=== PATIENT | male | born 1945 | race Hispanic/Latino ===

== ENCOUNTER 2018-01-30 05:53 | Observation (INO) | payer OTHER ==
[2018-01-23 12:18] LABS: BASOPHILS % 0.4 % (0.0-1.0); EOSINOPHILS # (AUTO) 0.2 (0.0-0.4); EOSINOPHILS % 2.2 % (0.0-6.0); HEMATOCRIT 45.5 % (38.2-49.6); HEMOGLOBIN 15.1 g/dL (14.0-18.0); LYMPHOCYTES # (AUTO) 1.7 (1.0-3.2); LYMPHOCYTES % 24.4 % (18.0-39.1); MEAN CORPUSCULAR HGB CONC 33.2 g/dL (31-35); MEAN CORPUSCULAR VOLUME 90.5 fL (81-99); MONOCYTES # (AUTO) 0.7 (0.2-0.8); MONOCYTES % 10.2 % (4.4-11.3); NEUTROPHILS # (AUTO) 4.2 (2.1-6.9); NEUTROPHILS % 62.5 % (38.7-80.0); PLATELET COUNT 200 x10e3/uL (140-360); RED BLOOD COUNT 5.03 x10e6/uL (4.3-5.7); RED CELL DISTRIBUTION WIDTH 12.6 % (11.7-14.4)
--- NOTE | 2018-01-23 12:29 | Diagnostic Imaging Report ---
PROCEDURE: Frontal and lateral views of the chest. COMPARISON: 06/28/2016 INDICATIONS: PRE OPERATIVE, PATIENT DENIES CHEST COMPLAINTS FINDINGS: Lines/tubes: None. Lungs: The lungs are well inflated and clear. There is no evidence of pneumonia or pulmonary edema. Pleura: There is no pleural effusion or pneumothorax. Heart and mediastinum: The heart and the mediastinum are normal. Bones: No acute bony abnormality. IMPRESSION: 1. No acute cardiopulmonary disease. Dictated by: Jus Cooper M.D. on 01/23/2018 at 12:35 Electronically approved by: Jus Cooper M.D. on 01/23/2018 at 12:35
[2018-01-23 12:35] LABS: ANION GAP 13.8 mmol/L (8-16); BLOOD UREA NITROGEN 18 mg/dL (7-26); BUN/CREATININE RATIO 22 (6-25); CALCIUM 9.8 mg/dL (8.4-10.2); CARBON DIOXIDE 24 mmol/L (22-29); CHLORIDE 108 mmol/L (98-107); CREATININE, SERUM 0.83 mg/dL (0.72-1.25); EST GLOMERULAR FILTRATION RATE > 60 ML/MIN (60-); GLUCOSE 98 mg/dL (74-118); POTASSIUM 5.8 mmol/L (3.5-5.1); SODIUM 140 mmol/L (136-145)
[~2018-01-30] VITALS: Ht 167.6 cm; Wt 70.8 kg
[~2018-01-30 05:53] MED LIST: ATORVASTATIN CA20 MG PO; BENADRYL25 M1; CARVEDILOL12.5 MG PO; DOXAZOSIN MESYLA2 MG PO; LEVAQUIN500 MG PO; TRAMADOL-ACETAMI1 EA PO; TRAZODONE HCL50 MG PO; TYLENOL # 31 EA PO; TYLENOL325 MG PO; [UNRECOGNIZED DRUG - CODE] PO
[2018-01-30] MEDS ORDERED: LEVOFLOXACIN 500MG/D5W 100ML 100 ML IV ONE (06:48)
[2018-01-30] MEDS ORDERED: CLINDAMYCIN 300MG 50 ML IV ONE (06:48)
[2018-01-30] MEDS ORDERED: BUPIVACAINE HCL 0.5% INJ 30 ML VIAL INJ ONE (07:07)
[2018-01-30] MEDS ORDERED: LIDOCAINE HCL 1% LOCAL INJ 20 ML VIAL ONE (07:07)
[2018-01-30] MEDS ORDERED: BUPIVACAINE 0.25%/EPI 30ML SDV INJ ONE (07:07)
[2018-01-30] MEDS ORDERED: BACITRACIN 50,000 UNIT VIAL ONE (07:07)
[2018-01-30] MEDS ORDERED: BACITRACIN ZINC 15 GM OINT ONE (07:07)
[2018-01-30] MEDS ORDERED: SCOPOLAMINE 1.5 MG PATCH ONE (07:47)
[2018-01-30] MEDS ORDERED: DIPHENHYDRAMINE HCL 25 MG CAP PO PRN (10:30)
[2018-01-30] MEDS ORDERED: MORPHINE SULFATE 1 MG/ML 30ML PCA IV PRN (10:30)
[2018-01-30] MEDS ORDERED: ONDANSETRON HCL INJ 2 MG/ML VIAL IV PRN (10:30)
[2018-01-30] MEDS ORDERED: DIPHENHYDRAMINE HCL INJ 50 MG/ML VIAL IM PRN (10:30)
[2018-01-30] MEDS ORDERED: NALOXONE HCL INJ 0.4 MG/ML AMP IV PRN (10:30)
[2018-01-30] MEDS ORDERED: FENTANYL CITRATE/PF 100MCG/2 ML INJ ONE ×2 (10:43→18:06)
[2018-01-30] MEDS ORDERED: MORPHINE SULFATE 2 MG/ML SYR ONE (10:56)
--- NOTE | 2018-01-30 11:10 | Operative Report ---
DATE OF PROCEDURE: January 30, 2018 PREOPERATIVE DIAGNOSIS: Left inguinal hernia. POSTOPERATIVE DIAGNOSIS: Left inguinal hernia. OPERATION PERFORMED: Repair of left inguinal hernia with extended Prolene hernia system. SUPERVISOR NUTRITIONAL YEAST: Jimmy Senior. ANESTHESIA: General. COMPLICATIONS: None. ESTIMATED BLOOD LOSS: Minimal. DESCRIPTION OF PROCEDURE: With the patient lying in bed in supine position and under good general endotracheal anesthesia, the abdomen and perineum was prepped with Betadine solution and draped in the usual manner. A left inguinal incision was made which was carried down through the subcutaneous tissue down to the external oblique aponeurosis. External oblique was then opened along the length of its fibers and the external inguinal ring was opened. There was quite a bit of scarring for the patient's penile implant around the external ring. The cord was nonetheless mobilized and retracted. The penile implant tubing was then identified. At this point, the case was turned over to Dr. Senior who proceeded to dissect the penile implants and tubing which was in the medial pocket and then he proceeded to take out the reservoir and then at that point, the case was turned back over to hi. The exploration of the cord revealed a large direct hernia that was present. This was from all the cord structures and reduced back to the intra-abdominal cavity. This had totally blown out the floor. Through the internal ring, we then went ahead and created a pocket in the preperitoneal space which was done without any difficulty and an extended Prolene hernia system was then placed in the preperitoneal space and the underlay patch was deployed without any problems. The floor was then tightened with a running suture of 2-0 Prolene. After this was done the overlay patch was then placed over the floor and split inferolaterally to allow for passage of the cord. The mesh was then sutured to the conjoined tendon and the inguinal ligament using interrupted sutures of 2-0 Vicryl. All layers were infiltrated on the way out with solution of 0.25% Marcaine. The external oblique aponeurosis was closed with a running suture of 2-0 Vicryl. The case was then turned back over to Dr. Senior who proceeded to repair the penile implant and when they were finished with that, we then went ahead and proceeded to close the wound using 3-0 Vicryl for the subcutaneous tissue and the skin was closed with clips. Dressings were applied. The sponge, lap, and needle count was correct. Patient tolerated the procedure well and returned to the recovery room in stable condition. Job#: [id number] NOLBERTO
[2018-01-30 11:30] VITALS: BP 135/66
[2018-01-30 12:00] VITALS: BP 135/66
[2018-01-30] MEDS: D5.45%NS/KCL 20MEQ 1,000 ML IV SCH ×3 (12:30→23:24)
[2018-01-30] MEDS ORDERED: CEFAZOLIN SOD 1 GM/D5W 50ML 50 ML IV SCH (14:00)
[2018-01-30] MEDS ORDERED: GENTAMICIN 80MG/NS 100 ML 100 ML IV SCH (14:00)
[2018-01-30] MEDS: CEFAZOLIN SOD 1 GM VIAL IV SCH ×2 (14:45→21:36)
[2018-01-30 16:00] VITALS: BP 136/67
[2018-01-30] MEDS: GENTAMICIN 80MG/NS 100 ML 100 ML IV SCH ×2 (16:10→23:23)
[2018-01-30] MEDS: DOCUSATE SODIUM 100 MG CAP PO SCH (16:42)
[2018-01-30] MEDS ORDERED: METOCLOPRAMIDE HCL 10 MG/2ML VIAL ONE (17:52)
[2018-01-30] MEDS ORDERED: DESFLURANE 240 ML BTL INH ONE (17:52)
[2018-01-30] MEDS ORDERED: ATROPINE SULFATE 1 MG/ML VIAL ONE (17:52)
[2018-01-30] MEDS ORDERED: DEXAMETHASONE SOD PHOS INJ 4 MG/ML VIAL ONE (17:52)
[2018-01-30] MEDS ORDERED: LIDOCAINE HCL 2% LOCAL INJ 5 ML SDV VIAL INJ ONE (17:52)
[2018-01-30] MEDS ORDERED: PROPOFOL IV EMULSION 10 MG/ML 20 ML VIAL ONE (17:52)
[2018-01-30] MEDS ORDERED: NEOSTIGMINE 5 MG/5ML SYR ONE (17:52)
[2018-01-30] MEDS ORDERED: ROCURONIUM BROMIDE 10 MG/ML 5ML VIAL ONE (17:52)
[2018-01-30] MEDS ORDERED: ONDANSETRON HCL INJ 2 MG/ML VIAL ONE (17:52)
[2018-01-30] MEDS ORDERED: MIDAZOLAM HCL 2 MG/2 ML VIAL ONE (18:06)
[2018-01-30 20:00] VITALS: BP 142/71
[2018-01-30 22:46] VITALS: BP 142/71
[2018-01-31] VITALS: BP 110/59
[2018-01-31 04:00] VITALS: BP 150/70
[2018-01-31] MEDS: CEFAZOLIN SOD 1 GM VIAL IV SCH (05:25)
[2018-01-31 05:50] LABS: BASOPHILS % 0.3 % (0.0-1.0); EOSINOPHILS % 0.3 % (0.0-6.0); HEMOGLOBIN 14.2 g/dL (14.0-18.0); LYMPHOCYTES # (AUTO) 0.9 (1.0-3.2); LYMPHOCYTES % 11.7 % (18.0-39.1); MEAN CORPUSCULAR HEMOGLOBIN 30.7 pg (28-32); MEAN CORPUSCULAR HGB CONC 33.8 g/dL (31-35); MEAN CORPUSCULAR VOLUME 90.7 fL (81-99); MONOCYTES % 12.8 % (4.4-11.3); NEUTROPHILS # (AUTO) 5.9 (2.1-6.9); NEUTROPHILS % 74.6 % (38.7-80.0); PLATELET COUNT 191 x10e3/uL (140-360); RED BLOOD COUNT 4.63 x10e6/uL (4.3-5.7); RED CELL DISTRIBUTION WIDTH 12.9 % (11.7-14.4)
[2018-01-31 06:07] LABS: ANION GAP 11.9 mmol/L (8-16); BLOOD UREA NITROGEN 13 mg/dL (7-26); BUN/CREATININE RATIO 14 (6-25); CALCIUM 9.3 mg/dL (8.4-10.2); CARBON DIOXIDE 24 mmol/L (22-29); CHLORIDE 109 mmol/L (98-107); CREATININE, SERUM 0.96 mg/dL (0.72-1.25); EST GLOMERULAR FILTRATION RATE > 60 ML/MIN (60-); GLUCOSE 105 mg/dL (74-118); POTASSIUM 3.9 mmol/L (3.5-5.1); SODIUM 141 mmol/L (136-145)
[2018-01-31 08:03] VITALS: BP 129/78
[2018-01-31] MEDS: GENTAMICIN 80MG/NS 100 ML 100 ML IV SCH (08:19)
[2018-01-31] MEDS: DOCUSATE SODIUM 100 MG CAP PO SCH (08:19)
[2018-01-31] MEDS: D5.45%NS/KCL 20MEQ 1,000 ML IV SCH (08:20)
[2018-01-31 08:51] VITALS: BP 129/78
--- NOTE | 2018-01-31 09:07 | Discharge Summary ---
PRIMARY CARE PHYSICIAN: Dr. Alarcon. CONSULTANTS: Dr. Dalton Senior and Dr. Issa Anthony. FINAL DIAGNOSES 1. Status post left inguinal hernia repair. 2. Status post penile prosthesis implantation. SUMMARY: A 72-year-old male, elective surgery of left inguinal hernia repair and penile prosthesis placement. Patient is stable. He is comfortable. No significant pain. Patient has been cleared by the surgeon for discharge home. He will follow up as an outpatient. The patient is stable. Discharged home with Dr. Senior. MEDICATIONS: Include Tylenol No. 3 as needed for pain and Bactrim DS twice a day for 10 days. FOLLOWUP: Patient to follow up with Dr. Anthony and Dr. Senior as per instructions. Job#: [id number] SHELBY
[2018-01-31 11:51] VITALS: BP 108/57
[2018-01-31] MEDS ORDERED: TYLENOL WITH C1 EACH PO (14:46)
[2018-01-31] MEDS ORDERED: KEFLEX500 MG PO (14:47)
[2018-01-31] MEDS ORDERED: NORCO 7.5-3251 EACH PO (15:16)
[2018-01-31] MEDS ORDERED: BACTRIM DS TAB1 EACH PO (15:16)
--- OUTSIDE RECORDS SUMMARY | 2018-02-28 06:06 | XMS REPORT ---
Author Author FRANCISCO MICHELLE Organization [employer] Address Unknown Phone Unavailable Care Team Providers Care Sales Planning Coordinator Name Role Phone FRANCISCO MICHELLE CP Unavailable Allergies No Known Allergies Problems No Known Problems Medications No Known Medications Results No Known Results Summary Purpose [employer] Submission
--- OUTSIDE RECORDS SUMMARY | 2018-02-28 06:06 | XMS REPORT ---
Author Author [facility] Address Unknown Phone Unavailable Care Team Providers Care Financial Institution Manager Name Role Phone BRYCE ROBB Unavailable Unavailable MILANA ALBERT Unavailable Unavailable Problems This patient has no known problems. Allergies, Adverse Reactions, Alerts This patient has no known allergies or adverse reactions. Medications This patient has no known medications. Results Test Description Test Time Test Comments Text Results Atomic Results Result Comments CHEST 2 VIEWS 2018-01-23 12:35:00 [place] [address] Patient Name: SARA HERRING MR #: [id number] : 1945 Age/Sex: 72/M Req #: [id number] Adm Physician: Ordered by: BRYCE ROBB MD Report #: [id number] Location: OR Room/Bed: Procedure: [id number] DX/CHEST 2 VIEWS Exam Date: 01/23/18 Exam Time: 1210 REPORT STATUS: Signed PROCEDURE: Frontal and lateral views of the chest. COMPARISON: 06/28/2016 INDICATIONS: PRE OPERATIVE, PATIENT DENIES CHEST COMPLAINTS FINDINGS: Lines/tubes: None. Lungs: The lungs are well inflated and clear. There is no evidence of pneumonia or pulmonary edema. Pleura: There is no pleural effusion or pneumothorax. Heart and mediastinum: The heart and the mediastinum are normal. Bones: No acute bony abnormality. IMPRESSION: 1. No acute cardiopulmonary disease. Dictated by: David Cooper M.D. on 01/23/2018 at 12:35 Electronically approved by: David Cooper M.D. on 01/23/2018 at 12:35 Dictated By: DAVID COOPER MD [id number] Transcribed By: ANTOINETTE on 01/23/18 1235 COPY TO: BRYCE ROBB MD Stress Test - Treadmill ONLY [place] [address] Patient Name : SARA HERRING MR #: [id number] : 1945 Age/Sex: 71/M Adm Physician : MILANA ALBERT MD Admit Date : Location : [place] Room/Bed : REPORT: Cardiology Report DATE OF STUDY: January 30, 2017 MYOVIEW STRESS TEST INDICATIONS: Chest pain. DESCRIPTION OF PROCEDURE: After informed consent, patient was brought to the stress lab. He was given 11 millicuries of technetium 99 Myoview and myocardial perfusion SPECT images obtained in the horizontal long-axis, short-axis and vertical long-axis views. Subsequently patient exercised on Andrei protocol. At peak heart rate patient was given 33 millicuries of technetium 99 Myoview and myocardial perfusion SPECT images were obtained in the horizontal long-axis, short-axis and vertical long-axis views. Gated images were also obtained. Patient tolerated the procedure without any complications. REPORT: Baseline EKG shows sinus rhythm at 162 beats per minute, normal axis, normal intervals, no acute ST-T changes. PARAMETERS 1. Resting heart rate 65 beats per minute. 2. Maximum heart rate 135 beats per minute. 3. Age predicted maximum heart rate 91%. 4. Duration of exercise is 10 minutes and 1 second. 5. Workload is 12.8 METS. 6. Resting blood pressure 153/78 mmHg. 7. Maximum blood pressure 184/82 mmHg. REASON FOR TERMINATION: Endpoint attained. INTERPRETATION 1. Negative for chest pain. 2. Negative for arrhythmias. 3. Blood pressure response was normal with exercise. 4. Borderline ST depression noted in the lateral leads during stress compared to baseline. However, not diagnostic for ischemia. 5. Analysis of SPECT images reveals uniform radioisotope uptake in all segments of the myocardium without any significant perfusion defects. CONCLUSION: 1. Borderline EKG changes. 2. No evidence significant ischemia or infarction on this study. 3. No wall motion abnormality. 4. Overall ejection fraction is 59%. DT : 02/02/2017 16:19 Job#: [id number] Signature Date Dictated By: MILANA ALBERT MD Transcribed By: LEOLA on 02/02/17 < Electronically signed by MILANA ALBERT MD><<Signature on File>>02/07/17 0856 COPY TO:
--- OUTSIDE RECORDS SUMMARY | 2018-02-28 06:06 | XMS REPORT ---
Author Author FRANCISCO MICHELLE Organization [employer] Address Unknown Phone Unavailable Care Team Providers Care Usability Strategist Name Role Phone FRANCISCO MICHELLE CP Unavailable Allergies No Known Allergies Problems No Known Problems Medications No Known Medications Results No Known Results Summary Purpose [employer] Submission
--- NOTE | 2018-04-08 00:27 | Operative Report ---
DATE OF PROCEDURE: January 30, 2018 PREOPERATIVE DIAGNOSIS: Bothersome pump tubing as well as need to revise an inflatable penile prosthesis due to requirements for a hernia repair. POSTOPERATIVE DIAGNOSIS: Bothersome pump tubing as well as need to revise an inflatable penile prosthesis due to requirements for a hernia repair. OPERATION PERFORMED: Complicated revision of inflatable penile prosthesis including replacement of the reservoir and revision and modification of the tubing between the pump and the cylinders. PUPPET ENGINEER: Jimmy Senior MD COMPLICATIONS: None. 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 The patient has a working penile prosthesis; however, he has been bothered by the tubing between cylinders and the pump which despite appropriate pump positioning is too long for his anatomy and it is protruding his scrotal wall in a bothersome way. The patient has developed a left inguinal hernia and is planning on repair with mesh. He is brought to the operating room not just to repair the hernia but also to revise his penile prosthesis and re-position the reservoir if needed. He is aware of the risks of bleeding, infection, injury to adjacent structures, need for additional procedures and elected to proceed. OPERATIVE PROCEDURE IN DETAIL: Informed consent was verified. Franklin Hand was properly identified, taken to the operating room, placed on the operating table in supine position. Anesthesia was uneventfully begun. The patient's abdomen and genitalia were shaved, prepared and draped in usual sterile fashion. Kim catheter was placed. A penoscrotal incision was made, carried through all layers of the scrotum until we reached the pump tubing. We fully isolated the patient's pump. We then utilized standard techniques with rubber-shods in order to excise a segment of tubing from each of the 2 tubings between the cylinders and the pump. Following excision of those segments, we re-connected the 2 ends utilizing the QuickConnect system. Dr. Anthony is planning on performing a hernia repair. We explored the left inguinal region. We removed the old reservoir and placed a new reservoir in a different location. It was inflated with 65 mL of saline and the QuickConnect system was utilized to re-establish continuity between the reservoir and the pump. Copious irrigation was performed with antibiotic irrigant and the patient's scrotal incision was approximated in multiple layers utilizing chromic suture in interrupted fashion. A total of 4 layers between the prosthesis and the skin were utilized. The case was then turned over to Dr. Anthony for completion of this hernia repair as planned. There were no complications to the urological part of the procedure. The sponge, needle, and instrument counts were correct x2 for the urological portion. Estimated blood loss was minimal as well. Testing of the penile prosthesis proved successful. We will follow the patient diligently on an ongoing basis postoperatively. Job#: [id number]
== END 2018-01-31 15:35 | disposition home or self-care (01) ==
LOC: OR 05:53 → PACU V 10:26 → MED/SURG 11:13
PROVIDERS: ADMIT Internal Medicine; ATTEND Internal Medicine
DX: K40.40 Unilateral inguinal hernia, with gangrene, not specified as recurrent (principal); I10 Essential (primary) hypertension; N52.9 Male erectile dysfunction, unspecified; Z72.0 Tobacco use; K21.9 Gastro-esophageal reflux disease without esophagitis; E78.5 Hyperlipidemia, unspecified; Z96.0 Presence of urogenital implants; Z87.440 Personal history of urinary (tract) infections; N40.1 Benign prostatic hyperplasia with lower urinary tract symptoms; R39.14 Feeling of incomplete bladder emptying; R39.16 Straining to void; R30.0 Dysuria; N45.1 Epididymitis; N39.0 Urinary tract infection, site not specified; N43.40 Spermatocele of epididymis, unspecified; N31.9 Neuromuscular dysfunction of bladder, unspecified; N43.3 Hydrocele, unspecified; Z12.5 Encounter for screening for malignant neoplasm of prostate
CPT/HCPCS: 36415 ×3; 49505; 54410; 71046; 80048 ×2; 83735; 84132; 85025 ×2; 88300; 93005; 96361 ×2; C1781; C1813; G0378 ×2; J0461; J0690 ×2; J1100; J1580; J1956; J2001 ×2; J2250; J2270 ×2; J2405; J2765; 96360

== ENCOUNTER 2019-06-30 11:44 | Observation (INO) | payer MEDICARE ==
[2019-06-25 13:16] LABS: BASOPHILS % 0.3 % (0.0-1.0); EOSINOPHILS # (AUTO) 0.1 (0.0-0.4); EOSINOPHILS % 2.1 % (0.0-6.0); HEMATOCRIT 42.5 % (38.2-49.6); HEMOGLOBIN 14.1 g/dL (14.0-18.0); LYMPHOCYTES # (AUTO) 1.4 (1.0-3.2); LYMPHOCYTES % 23.3 % (18.0-39.1); MEAN CORPUSCULAR HEMOGLOBIN 29.6 pg (28-32); MEAN CORPUSCULAR HGB CONC 33.2 g/dL (31-35); MEAN CORPUSCULAR VOLUME 89.1 fL (81-99); MONOCYTES # (AUTO) 0.6 (0.2-0.8); MONOCYTES % 9.9 % (4.4-11.3); NEUTROPHILS # (AUTO) 3.7 (2.1-6.9); NEUTROPHILS % 64.2 % (38.7-80.0); PLATELET COUNT 173 x10e3/uL (140-360); RED BLOOD COUNT 4.77 x10e6/uL (4.3-5.7); RED CELL DISTRIBUTION WIDTH 12.6 % (11.7-14.4)
--- NOTE | 2019-06-25 13:20 | Diagnostic Imaging Report ---
EXAMINATION: CHEST 2 VIEWS INDICATION: COMPARISON: None FINDINGS: LINES/TUBES:None LUNGS:The lungs are well-inflated. No focal consolidation or pulmonary edema. PLEURA:No pleural effusion or pneumothorax. MEDIASTINUM:The cardiomediastinal silhouette appears normal in size and shape. Atherosclerotic calcifications of the thoracic aorta. BONES/SOFT TISSUES:No acute osseous injury. ABDOMEN:No free air under the diaphragm. IMPRESSION: No focal pneumonia or pulmonary edema. Signed by: Clarence Alvarez MD on 06/25/2019 1:17 PM
[~2019-06-30] VITALS: Ht 167.6 cm; Wt 70.3 kg
[~2019-06-30 11:44] MED LIST changes: +ATORVASTATIN CA10 MG PO; +BACTRIM DS TAB1 EACH PO; +KEFLEX500 MG PO; +LOSARTAN POTAS100 MG PO; +MELOXICAM7.5 MG PO; +MIRTAZAPINE15 MG PO; +NORCO 7.5-3251 EACH PO; +TYLENOL WITH C1 EACH PO
[2019-06-30] MEDS ORDERED: PIPER-TAZ 3.375 GM 50 ML ONE (13:31)
[2019-06-30] MEDS ORDERED: CLINDAMYCIN 600MG / 50ML 50 ML IV ONE (13:32)
[2019-06-30] MEDS ORDERED: BACITRACIN ZINC 15 GM OINT ONE (13:55)
[2019-06-30] MEDS ORDERED: BACITRACIN 50,000 UNIT VIAL ONE (13:55)
[2019-06-30] MEDS ORDERED: BUPIVACAINE HCL 0.5% INJ 30 ML VIAL INJ ONE (13:55)
[2019-06-30] MEDS ORDERED: LIDOCAINE HCL 2% LOCAL INJ 5 ML SDV VIAL INJ ONE (14:11)
[2019-06-30] MEDS ORDERED: SUCCINYLCHOLINE CHLORIDE 20 MG/ML 10ML VIAL ONE (14:11)
[2019-06-30] MEDS ORDERED: SEVOFLURANE INHAL SOLN 250 ML PEN BTL ONE (14:11)
[2019-06-30] MEDS ORDERED: PROPOFOL IV EMULSION 10 MG/ML 20 ML VIAL ONE (14:11)
[2019-06-30] MEDS ORDERED: ONDANSETRON HCL INJ 2MG/ML 2ML 2 MG/ML VIAL ONE (14:11)
[2019-06-30] MEDS ORDERED: ROCURONIUM BROMIDE 10 MG/ML 5ML VIAL ONE (14:11)
[2019-06-30] MEDS ORDERED: NEOSTIGMINE 1 MG/ML 10ML VIAL ONE (14:11)
[2019-06-30] MEDS ORDERED: GLYCOPYRROLATE INJ 0.2 MG/ML VIAL ONE (14:11)
[2019-06-30] MEDS ORDERED: DEXAMETHASONE SOD PHOS INJ 4 MG/ML VIAL ONE (14:11)
[2019-06-30] MEDS ORDERED: FENTANYL CITRATE/PF 100MCG/2 ML INJ ONE (14:31)
[2019-06-30] MEDS ORDERED: MIDAZOLAM HCL 2 MG/2 ML VIAL ONE (14:31)
[2019-06-30] MEDS ORDERED: D5.45%NS/KCL 20MEQ 1,000 ML IV SCH (14:50)
[2019-06-30] MEDS ORDERED: MORPHINE SULFATE 1 MG/ML 30ML PCA IV PRN (15:00)
[2019-06-30] MEDS ORDERED: ACETAMINOPHEN/CODEINE 300MG - 30MG TAB PO PRN (15:00)
[2019-06-30] MEDS ORDERED: NALOXONE HCL INJ 0.4 MG/ML AMP IV PRN (15:00)
[2019-06-30] MEDS ORDERED: ONDANSETRON HCL INJ 2MG/ML 2ML 2 MG/ML VIAL IV PRN (15:00)
[2019-06-30] MEDS ORDERED: DIPHENHYDRAMINE HCL 25 MG CAP PO PRN (15:00)
[2019-06-30] MEDS ORDERED: IOPAMIDOL 300MG/ML 50ML INFUS..BTL IV ONE (15:07)
[2019-06-30] MEDS ORDERED: B&O 60MG R/S 60 MG SUPP PR ONE (15:07)
[2019-06-30] MEDS ORDERED: SUGAMMADEX SODIUM 200 MG/2 ML VIAL IV ONE (16:53)
[2019-06-30] MEDS ORDERED: MORPHINE SULFATE 1 MG/ML 30ML PCA ONE (17:47)
[2019-06-30] MEDS ORDERED: MORPHINE SULFATE INJ 4 MG/ML INJ 1ML ONE (17:47)
[2019-06-30] MEDS ORDERED: HYDROMORPHONE 1MG/1ML INJ ONE (18:15)
[2019-06-30 20:00] VITALS: BP 151/75
[2019-06-30] MEDS ORDERED: ACETAMINOPHEN 1000 MG/100 ML IV PRN (20:00)
[2019-06-30] MEDS: CLINDAMYCIN 300MG 50 ML IV SCH (22:31)
[2019-06-30] MEDS: DOCUSATE SODIUM 100 MG CAP PO SCH (22:31)
[2019-06-30 23:00] VITALS: BP 151/75
--- NOTE | 2019-06-30 23:00 | NUR ---
RECEIVED PATIENT FROM PACU, PATIENT TRANSFER TO THE STRETCHER FROM THE BED, IV INFUSING, CLINICAL TRIALS SPECIALIST PUMP INTACT, MAN REMAIN INTACT, PENIS SECURED TO ABDOMEN WITH TAPE, WILL CONTINUE TO MONITOR. CALL LIGHT IN REACH.
[2019-06-30] MEDS: PIPER-TAZ 3.375 GM 50 ML IV SCH (23:17)
[2019-07-01] VITALS (9 sets, daily range): BP systolic 99–151; BP diastolic 50–76
--- NOTE | 2019-07-01 00:18 | NUR ---
PATIENT CONTINUE RESTING, NO DISTRESS NOTED. CALL LIGHT IN REACH.
[2019-07-01] MEDS: CLINDAMYCIN 300MG 50 ML IV SCH ×3 (05:56→21:30)
[2019-07-01] MEDS: PIPER-TAZ 3.375 GM 50 ML IV SCH (06:03)
--- NOTE | 2019-07-01 07:00 | NUR ---
RCD PT AT BED PT IS ALERT AND ORIENTED PT RESTING ON BED NO SIGNS OF ANY DISTRESS NOTED PT ON PRINTING ROLLER HANDLER MORPHINE AND MAN DRAINING BY GRAVITY NO HEMATURIA EDEN COLOR URINE IV PATENT BY SALINE FLUSH BED LOW AND LOCKED CALL LIGHT IN REACH
[2019-07-01 07:04] LABS: HEMATOCRIT 38.4 % (38.2-49.6); HEMOGLOBIN 12.5 g/dL (14.0-18.0)
[2019-07-01 07:05] LABS: LYMPHOCYTES % 10.5 % (18.0-39.1); MEAN CORPUSCULAR HEMOGLOBIN 29.8 pg (28-32); MEAN CORPUSCULAR HGB CONC 32.6 g/dL (31-35); MEAN CORPUSCULAR VOLUME 91.4 fL (81-99); MONOCYTES % 8.1 % (4.4-11.3); NEUTROPHILS % 80.9 % (38.7-80.0); PLATELET COUNT 157 x10e3/uL (140-360); RED CELL DISTRIBUTION WIDTH 12.7 % (11.7-14.4)
[2019-07-01 07:06] LABS: BASOPHILS % 0.2 % (0.0-1.0)
--- NOTE | 2019-07-01 07:26 | NUR ---
called dr. resendez office concerning consult orders, called cell at [phone] and left message.
--- NOTE | 2019-07-01 07:28 | NUR ---
REPORT GIVEN TO 7AM NURSE, ROUNDS DONE.
[2019-07-01 08:20] LABS: ANION GAP 15.8 mmol/L (8-16); BLOOD UREA NITROGEN 16 mg/dL (7-26); CARBON DIOXIDE 18 mmol/L (22-29); CHLORIDE 108 mmol/L (98-107); CREATININE, SERUM 0.94 mg/dL (0.72-1.25); POTASSIUM 4.8 mmol/L (3.5-5.1); SODIUM 137 mmol/L (136-145)
[2019-07-01 08:21] LABS: BUN/CREATININE RATIO 17 (6-25); CALCIUM 8.8 mg/dL (8.4-10.2); EST GLOMERULAR FILTRATION RATE > 60 ML/MIN (60-); GLUCOSE 148 mg/dL (74-118)
[2019-07-01 08:34] LABS: LYMPHOCYTES # (AUTO) 0.7 (1.0-3.2); MONOCYTES # (AUTO) 0.5 (0.2-0.8); NEUTROPHILS # (AUTO) 5.1 (2.1-6.9)
[2019-07-01] MEDS: DOCUSATE SODIUM 100 MG CAP PO SCH ×2 (09:00→17:00)
--- NOTE | 2019-07-01 09:00 | NUR ---
SIDDHARTH FLETCHER NOTIFIED THE ZOO KEEPER TO TRANSFER THE PT TO [facility]
--- NOTE | 2019-07-01 09:30 | NUR ---
DC MAN BY ORDER 500 ML URINE IN THE BAG ,CLEAR URINE AND DC INTERNAL MEDICINE HOSPITALIST
--- NOTE | 2019-07-01 10:38 | History and Physical ---
PRIMARY CARE PHYSICIAN: Dr. Roderick Patel. CONSULTANTS: Dalton Senior MD CHIEF COMPLAINT: The patient is status post prosthesis malfunction exchange in place. HISTORY OF PRESENT ILLNESS: The patient is a 74-year-old male with enlarged prostate and penile prosthesis with malfunction status post replace of penile prosthesis and pump. The patient is otherwise stable at this time. He is comfortable. He is in pain control. The patient is status post postoperative day on current care. PAST MEDICAL HISTORY: 1. Enlarged prostate and penile implant. 2. Hypertension. 3. Osteoarthritis. 4. TURP. 5. Cholecystectomy and urinary bladder stone removal. 6. EGD. 7. Colonoscopy. 8. Hemorrhoidectomy. PAST SURGICAL HISTORY: Penile implant. SOCIAL HISTORY: The patient does not smoke or use alcohol. No regular drugs. ALLERGIES: NO KNOWN ALLERGIES. REVIEW OF SYSTEMS: As mentioned above. SOCIAL HISTORY: No tobacco or alcohol consumption. ALLERGIES: NO KNOWN ALLERGIES. HOME MEDICATIONS: List reviewed. REVIEW OF SYSTEMS: No chest pain. No abdominal pain. No diarrhea or constipation. PHYSICAL EXAMINATION: VITAL SIGNS: Temperature is 98, blood pressure 108/54, pulse rate is 64, respirations 18. GENERAL: The patient is not in acute distress. He is awake. HEENT: Normocephalic and atraumatic. Anicteric. NECK: Supple grossly. PULMONARY: Diminished breath sounds. CARDIOVASCULAR: S1, S2. Regular rate and rhythm. ABDOMEN: Soft, status post urological procedure. EXTREMITIES: No cyanosis or edema. NEUROLOGIC: No gross focal deficit. LABORATORY DATA: Sodium is 137, potassium 4.8, chloride 108 bicarb is 18, BUN 16, creatinine 0.9, glucose 148. WBC is 6.3, hemoglobin 12.5, hematocrit 38.4, and platelets is 157. IMPRESSION: Status post postoperative penile prosthesis replacement and pump replacement. PLAN: Continue with postop care. The patient should be able to eat, drink an increase ambulatory. If he is doing better the patient should be able to go home within 24 to 48 hours. MD NOHEMI Conner/WENDIL /[id number]
--- NOTE | 2019-07-01 12:29 | NUR ---
PT VOIDED AFTER MAN
--- NOTE | 2019-07-01 14:45 | NUR ---
Visit made by the Spiritual Care Department Pastoral Visitor, Yasmine Obrien. PV provided pastoral presence, prayer, hospitality, and supportive listening. Pastoral Visitor informed pt/family of the scope of [employer] and availability. ARA LAGUNAS Auto Body Technician Spiritual Care Department O: [phone] Pager: [phone] ([phone] number calling from)
--- NOTE | 2019-07-01 18:40 | NUR ---
PT RESTING ON BED BED SIDE REPORT GIVEN TO ONCOMING NURSE
[2019-07-01] MEDS: MIRTAZAPINE 15 MG TAB PO SCH ×2 (20:29→20:32)
[2019-07-01] MEDS: LOSARTAN POTASSIUM 100 MG TAB PO SCH ×2 (20:29→20:32)
--- NOTE | 2019-07-01 20:40 | NUR ---
TRANSFERRED PATIENT TO ROOM 107. VITAL SIGN STABLE AT THIS TIME
--- NOTE | 2019-07-01 20:41 | NUR ---
Received patient as transfer from 203. patient welcomed and offered, safety and fall precautions maintained.
[2019-07-01] MEDS ORDERED: ATORVASTATIN 10 MG TAB PO SCH (21:00)
[2019-07-01] MEDS ORDERED: SODIUM CHLORIDE 0.9% 250ML 250 ML ONE (21:11)
[2019-07-02 04:00] VITALS: BP 107/50
[2019-07-02] MEDS: CLINDAMYCIN 300MG 50 ML IV SCH (04:13)
[2019-07-02 06:11] LABS: BASOPHILS % 0.4 % (0.0-1.0); EOSINOPHILS # (AUTO) 0.3 (0.0-0.4); EOSINOPHILS % 4.7 % (0.0-6.0); HEMOGLOBIN 13.1 g/dL (14.0-18.0); LYMPHOCYTES # (AUTO) 1.4 (1.0-3.2); LYMPHOCYTES % 25.7 % (18.0-39.1); MEAN CORPUSCULAR HEMOGLOBIN 29.4 pg (28-32); MEAN CORPUSCULAR HGB CONC 32.8 g/dL (31-35); MEAN CORPUSCULAR VOLUME 89.9 fL (81-99); MONOCYTES # (AUTO) 0.5 (0.2-0.8); MONOCYTES % 9.3 % (4.4-11.3); NEUTROPHILS # (AUTO) 3.3 (2.1-6.9); NEUTROPHILS % 59.7 % (38.7-80.0); PLATELET COUNT 174 x10e3/uL (140-360); RED BLOOD COUNT 4.45 x10e6/uL (4.3-5.7); RED CELL DISTRIBUTION WIDTH 12.9 % (11.7-14.4)
[2019-07-02 06:31] LABS: ANION GAP 13.2 mmol/L (8-16); BLOOD UREA NITROGEN 16 mg/dL (7-26); BUN/CREATININE RATIO 14 (6-25); CALCIUM 9.1 mg/dL (8.4-10.2); CARBON DIOXIDE 25 mmol/L (22-29); CHLORIDE 107 mmol/L (98-107); CREATININE, SERUM 1.11 mg/dL (0.72-1.25); EST GLOMERULAR FILTRATION RATE > 60 ML/MIN (60-); GLUCOSE 96 mg/dL (74-118); POTASSIUM 4.2 mmol/L (3.5-5.1); SODIUM 141 mmol/L (136-145)
--- NOTE | 2019-07-02 07:17 | NUR ---
Patient endorsed to next shift for continuity of care.
--- NOTE | 2019-07-02 07:18 | NUR ---
received bedside change of shift report from PM nurse, pt sleeping, respirations even and unlabored. no signs of distress. all safety measures in place.
[2019-07-02 07:26] VITALS: BP 112/63
[2019-07-02 07:46] VITALS: BP 112/63
[2019-07-02] MEDS ORDERED: BISACODYL 10 MG SUPP PR ONE (08:30)
[2019-07-02] MEDS ORDERED: BISACODYL 10 MG SUPP PR PRN (08:30)
[2019-07-02] MEDS ORDERED: MELOXICAM 7.5 MG TAB PO SCH (09:00)
[2019-07-02] MEDS ORDERED: ONDANSETRON HCL 4 MG ORAL DISINTEGRATING TAB PO PRN (09:45)
[2019-07-02] MEDS: SENNOSIDES 8.6 MG TAB PO SCH ×2 (10:01→16:38)
[2019-07-02 11:30] VITALS: BP 99/53
--- NOTE | 2019-07-02 12:03 | NUR ---
UPON RE-EVALUATION, PT STATES HE HAD SMALL BOWEL MOVEMENT TODAY THAT WAS VERY SOFT. PT STATES HE IS ALSO PASSING A LOT OF GAS. SPOKE WITH DR. FLETCHER WHO STATES PT IS CLEARED TO GO FROM HIS STANDPOINT AND PT CAN HAVE ANOTHER DULCOLAX OR SUPPOSITORY IF HE REQUESTS IT.
--- NOTE | 2019-07-02 13:14 | NUR ---
PT STATES HE JUST HAD LARGE BM AND PAIN IMPROVED. BEDSIDE BLADDER SCAN SHOWED 62 ML. PT STATES HIS URINATION IS ALMOST BACK TO NORMAL.
[2019-07-02 15:46] VITALS: BP 123/66
[2019-07-02] MEDS ORDERED: ZOFRAN4 MG PO (17:32)
[2019-07-02] MEDS ORDERED: SENNA LAXATIVE8.6 MG PO (17:33)
[2019-07-02] MEDS ORDERED: TYLENOL WITH C1 EACH PO (17:34)
[2019-07-02] MEDS ORDERED: LEVAQUIN500 MG PO (17:34)
--- NOTE | 2019-08-11 09:23 | Operative Report ---
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 OPERATIONS PERFORMED: 1. Flexible cystourethroscopy (separate procedure performed for the obstructive benign prostatic hypertrophy). 2. Replacement of inflatable penile prosthesis (separate procedure performed for the organic impotence). HAND SUTURE WINDER: Dr. Jimmy Senior. ANESTHESIA: General. COMPLICATIONS: None. CLINICAL SUMMARY: Frankiln Hand is a 74-year-old man with a penile prosthesis. The patient's penile prosthesis has been auto deflating and has been malfunctioning. The patient is brought for repair and replacement. He is aware of the risks of bleeding, infection, injury to adjacent structures, need for additional procedures and elected to proceed. OPERATIVE PROCEDURE IN DETAIL: Informed consent was verified. Franklin Hand ws properly identified, taken to the operating room, and placed on the operating table in supine position. Anesthesia was uneventfully begun. The patient's genitalia were then prepared for 10 minutes by the clock and draped in usual sterile fashion. Flexible cystourethroscopy was performed. Cystoscopy revealed normal urethra. There was normal sphincteric region. The prostate bed was unremarkable. Bladder exhibited trabeculations. The cystoscope was withdrawn. A Kim catheter was then placed and upper scrotal incision was made transversely, carried through all layers of the scrotum. We identified the pump. We explanted the pump. We followed the tubing to both corporal cavernosa, incised, and removed prosthesis and pre-placed all this in Vicryl sutures. We measured the corpora bilaterally. We copiously irrigated. We then utilized an AMS 700 CX with 18 cm in length and added 2 cm of rear-tip extenders. We placed the cylinders, first on the left hand side and on right hand side. We tied down all pre-placed sutures and this resulted in complete sealing of the corporal cavernosa and good positioning of the cylinders. We then revised the pocket for the pump, placed the pump into the pocket. We completely deflated the patient's reservoir, irrigated to and fro to ensure it worked properly. It did not have any leak and had the 65 mL of saline that we left previously. A new saline was placed measuring 65 mL into the reservoir. Quick connect system was then utilized to connect the pump to the reservoir. Copious irrigation was performed with antibiotic irrigant at each level of the closure and of course throughout the procedure. The scrotal incision was approximated in four layers utilizing chromic suture. A sterile dressing was applied and the patient was uneventfully reversed from anesthesia and taken to recovery room in stable condition. There were no complications to the procedure and the patient tolerated the procedure well. Sponge, needle, and instrument counts were correct x2 at the end of the case. Estimated blood loss was minimal. Explicit postop instructions were given. We will follow the patient in the office following his discharge on a long-term basis. In the meantime, we will admit the patient for intravenous antibiotics and postop care. Dalton Senior MD [place]/WENDIL /[id number] cc: Roderick Patel
== END 2019-07-02 18:31 | disposition home or self-care (01) ==
LOC: OR 11:44 → MED/SURG2 20:34 → INTOOBSV 20:34 → MED/SURG 07-01 20:09
PROVIDERS: ADMIT Internal Medicine; ATTEND Internal Medicine
DX: T83.490A Other mechanical complication of implanted penile prosthesis, initial encounter (principal); N40.0 Benign prostatic hyperplasia without lower urinary tract symptoms; I10 Essential (primary) hypertension; M19.90 Unspecified osteoarthritis, unspecified site; N52.9 Male erectile dysfunction, unspecified
CPT/HCPCS: 36415 ×3; 52000; 54416; 71046; 80048 ×2; 85025 ×3; 88300; 93005; C1813; G0378 ×3; J0131; J0330; J1100; J1170; J2001; J2250; J2270 ×2; J2405 ×2; J2543 ×2; J2704; J2710; J3010; J7050

== ENCOUNTER 2021-02-14 11:34 | Inpatient (IN) | payer MEDICARE ==
[2021-02-11 08:46] LABS: BASOPHILS % 0.3 % (0.0-1.0); EOSINOPHILS # (AUTO) 0.2 (0.0-0.4); EOSINOPHILS % 3.7 % (0.0-6.0); HEMATOCRIT 41.2 % (38.2-49.6); HEMOGLOBIN 13.1 g/dL (14.0-18.0); LYMPHOCYTES # (AUTO) 1.4 (1.0-3.2); MEAN CORPUSCULAR HEMOGLOBIN 29.6 pg (28-32); MEAN CORPUSCULAR HGB CONC 31.8 g/dL (31-35); MONOCYTES # (AUTO) 0.8 (0.2-0.8); MONOCYTES % 13.6 % (4.4-11.3); NEUTROPHILS # (AUTO) 3.4 (2.1-6.9); NEUTROPHILS % 58.2 % (38.7-80.0); PLATELET COUNT 203 x10e3/uL (140-360); RED BLOOD COUNT 4.43 x10e6/uL (4.3-5.7); RED CELL DISTRIBUTION WIDTH 12.6 % (11.7-14.4)
[2021-02-11 09:10] LABS: ANION GAP 12.4 mmol/L (8-16); CALCIUM 9.2 mg/dL (8.4-10.2); CREATININE, SERUM 1.26 mg/dL (0.72-1.25); POTASSIUM 4.4 mmol/L (3.5-5.1)
[~2021-02-14] VITALS: Ht 167.6 cm; Wt 67.1 kg
[~2021-02-14 11:34] MED LIST changes: +ASPIRIN81 MG PO; +PANTOPRAZOLE SO40 MG PO; +SENNA LAXATIVE8.6 MG PO; +ZOFRAN4 MG PO
[2021-02-14] MEDS ORDERED: CLINDAMYCIN 300MG 50 ML IV ONE (12:43)
[2021-02-14] MEDS ORDERED: SODIUM CHLORIDE 0.9% 50ML 50 ML ONE (12:43)
[2021-02-14] MEDS ORDERED: GENTAMICIN 80MG/NS 100 ML 200 ML IV ONE (12:43)
[2021-02-14] MEDS ORDERED: PIPERACILLIN/TAZOBACTAM 3.375 GM VIAL ONE (12:43)
[2021-02-14] MEDS ORDERED: SCOPOLAMINE 1.5 MG PATCH ONE (12:43)
[2021-02-14] MEDS ORDERED: POVIDONE IODINE 0.05% 0.05 % ML PO ONE (13:08)
[2021-02-14] MEDS ORDERED: ATROPINE SULFATE 1 MG/ML VIAL ONE (13:08)
[2021-02-14] MEDS ORDERED: SEVOFLURANE INHAL SOLN 250 ML PEN BTL ONE (13:08)
[2021-02-14] MEDS ORDERED: DEXAMETHASONE SOD PHOS INJ 4 MG/ML SDV ONE (13:08)
[2021-02-14] MEDS ORDERED: ONDANSETRON HCL INJ 2MG/ML 2ML 2 MG/ML VIAL ONE (13:08)
[2021-02-14] MEDS ORDERED: LIDOCAINE HCL 2% LOCAL INJ 5 ML SDV VIAL INJ ONE (13:08)
[2021-02-14] MEDS ORDERED: PROPOFOL IV EMULSION 10 MG/ML 20 ML VIAL ONE (13:08)
[2021-02-14] MEDS ORDERED: Vancomycin IV 1 GM VIAL ONE (13:13)
[2021-02-14] MEDS ORDERED: GENTAMICIN SULFATE 40 MG/ML 2 ML VIAL ONE (13:14)
[2021-02-14] MEDS ORDERED: SODIUM CHLORIDE 0.9% 100 ML ONE (13:20)
[2021-02-14] MEDS ORDERED: SODIUM CHLORIDE 0.9% 500ML 500 ML ONE (13:20)
[2021-02-14] MEDS ORDERED: EPHEDRINE SULFATE INJ 50 MG/ML VIAL ONE (13:55)
[2021-02-14] MEDS ORDERED: MUPIROCIN 2% OINT 22 GM TUBE ONE (15:03)
[2021-02-14] MEDS ORDERED: NALOXONE HCL INJ 0.4 MG/ML AMP IV PRN (16:00)
[2021-02-14] MEDS ORDERED: ACETAMINOPHEN 1000 MG/100 ML IV PRN (16:00)
[2021-02-14] MEDS ORDERED: DIPHENHYDRAMINE HCL 25 MG CAP PO PRN (16:00)
[2021-02-14] MEDS ORDERED: MORPHINE SULFATE 1 MG/ML 30ML PCA IV PRN (16:00)
[2021-02-14] MEDS ORDERED: PHENAZOPYRIDINE HCL 100 MG TAB PO PRN (16:00)
[2021-02-14] MEDS ORDERED: ONDANSETRON HCL INJ 2MG/ML 2ML 2 MG/ML VIAL IV PRN (16:00)
[2021-02-14] MEDS ORDERED: FENTANYL CITRATE/PF 100MCG/2 ML INJ ONE (16:06)
[2021-02-14 18:10] LABS: BASOPHILS % 0.1 % (0.0-1.0); EOSINOPHILS % 0.1 % (0.0-6.0); HEMATOCRIT 38.9 % (38.2-49.6); HEMOGLOBIN 12.4 g/dL (14.0-18.0); LYMPHOCYTES # (AUTO) 0.7 (1.0-3.2); LYMPHOCYTES % 8.5 % (18.0-39.1); MEAN CORPUSCULAR HEMOGLOBIN 29.5 pg (28-32); MEAN CORPUSCULAR HGB CONC 31.9 g/dL (31-35); MEAN CORPUSCULAR VOLUME 92.4 fL (81-99); MONOCYTES # (AUTO) 0.3 (0.2-0.8); MONOCYTES % 3.2 % (4.4-11.3); NEUTROPHILS # (AUTO) 6.9 (2.1-6.9); NEUTROPHILS % 87.8 % (38.7-80.0); PLATELET COUNT 159 x10e3/uL (140-360); RED BLOOD COUNT 4.21 x10e6/uL (4.3-5.7); RED CELL DISTRIBUTION WIDTH 12.5 % (11.7-14.4)
[2021-02-14 18:24] LABS: ANION GAP 13.4 mmol/L (8-16); CALCIUM 8.8 mg/dL (8.4-10.2); CREATININE, SERUM 0.97 mg/dL (0.72-1.25); POTASSIUM 4.4 mmol/L (3.5-5.1)
[2021-02-14 19:25] VITALS: BP 127/71
[2021-02-14 20:30] VITALS: BP 122/76
[2021-02-14] MEDS: D5.45%NS/KCL 20MEQ 1,000 ML IV SCH (20:30)
[2021-02-14] MEDS: CLINDAMYCIN 300MG 50 ML IV SCH (21:30)
[2021-02-14] MEDS: DOCUSATE SODIUM 100 MG CAP PO SCH (21:30)
[2021-02-14] MEDS: PIPERACILLIN/TAZOBACTAM 2.25 GM in SODIUM CHLORIDE 0.9% 50ML 50 ML IV SCH (22:00)
[2021-02-14] MEDS: LOSARTAN POTASSIUM 100 MG TAB PO SCH (22:20)
[2021-02-14] MEDS: ATORVASTATIN 10 MG TAB PO SCH (22:20)
[2021-02-14 22:30] VITALS: BP 127/71
[2021-02-15] VITALS (8 sets, daily range): BP systolic 103–122; BP diastolic 53–71
[2021-02-15] MEDS: CLINDAMYCIN 300MG 50 ML IV SCH (04:44)
[2021-02-15] MEDS: D5.45%NS/KCL 20MEQ 1,000 ML IV SCH ×2 (04:44→10:18)
[2021-02-15] MEDS: PIPERACILLIN/TAZOBACTAM 2.25 GM in SODIUM CHLORIDE 0.9% 50ML 50 ML IV SCH ×3 (05:30→20:53)
[2021-02-15 06:02] LABS: BASOPHILS % 0.3 % (0.0-1.0); EOSINOPHILS % 0.4 % (0.0-6.0); HEMOGLOBIN 11.2 g/dL (14.0-18.0); LYMPHOCYTES # (AUTO) 0.9 (1.0-3.2); LYMPHOCYTES % 12.9 % (18.0-39.1); MEAN CORPUSCULAR HEMOGLOBIN 29.8 pg (28-32); MEAN CORPUSCULAR VOLUME 93.1 fL (81-99); MONOCYTES # (AUTO) 0.8 (0.2-0.8); MONOCYTES % 11.3 % (4.4-11.3); NEUTROPHILS # (AUTO) 5.2 (2.1-6.9); NEUTROPHILS % 74.7 % (38.7-80.0); PLATELET COUNT 149 x10e3/uL (140-360); RED BLOOD COUNT 3.76 x10e6/uL (4.3-5.7); RED CELL DISTRIBUTION WIDTH 12.6 % (11.7-14.4)
[2021-02-15 06:29] LABS: ANION GAP 11.4 mmol/L (8-16); CREATININE, SERUM 1.02 mg/dL (0.72-1.25); POTASSIUM 4.4 mmol/L (3.5-5.1)
[2021-02-15] MEDS ORDERED: HYDROCODONE/APAP 10MG-325MG TAB PO PRN (09:30)
[2021-02-15] MEDS ORDERED: ONDANSETRON HCL INJ 2MG/ML 2ML 2 MG/ML VIAL IV PRN (09:30)
[2021-02-15] MEDS: DOCUSATE SODIUM 100 MG CAP PO SCH ×2 (09:36→16:02)
[2021-02-15] MEDS: PANTOPRAZOLE SOD 40 MG TABEC PO SCH (09:37)
[2021-02-15] MEDS: MAGNESIUM HYDROXIDE 30 ML UDC PO PRN (11:09)
[2021-02-15] MEDS: POLYETHYLENE GLYCOL 3350 17 GM PACK PO SCH (11:09)
[2021-02-15] MEDS: LOSARTAN POTASSIUM 100 MG TAB PO SCH (20:53)
[2021-02-15] MEDS: ATORVASTATIN 10 MG TAB PO SCH (20:53)
[2021-02-15] MEDS: MORPHINE SULFATE INJ 4 MG/ML INJ 1ML IV PRN (21:12)
[2021-02-16] VITALS (8 sets, daily range): BP systolic 94–144; BP diastolic 50–81
[2021-02-16] MEDS: D5.45%NS/KCL 20MEQ 1,000 ML IV SCH ×2 (00:23→12:58)
[2021-02-16] MEDS: PIPERACILLIN/TAZOBACTAM 2.25 GM in SODIUM CHLORIDE 0.9% 50ML 50 ML IV SCH ×3 (04:47→20:46)
[2021-02-16 06:34] LABS: BASOPHILS % 0.4 % (0.0-1.0); EOSINOPHILS # (AUTO) 0.3 (0.0-0.4); EOSINOPHILS % 6.1 % (0.0-6.0); HEMATOCRIT 36.5 % (38.2-49.6); HEMOGLOBIN 11.5 g/dL (14.0-18.0); LYMPHOCYTES % 21.6 % (18.0-39.1); MEAN CORPUSCULAR HEMOGLOBIN 29.6 pg (28-32); MEAN CORPUSCULAR HGB CONC 31.5 g/dL (31-35); MEAN CORPUSCULAR VOLUME 94.1 fL (81-99); MONOCYTES # (AUTO) 0.6 (0.2-0.8); MONOCYTES % 12.3 % (4.4-11.3); NEUTROPHILS # (AUTO) 2.8 (2.1-6.9); NEUTROPHILS % 59.4 % (38.7-80.0); PLATELET COUNT 130 x10e3/uL (140-360); RED BLOOD COUNT 3.88 x10e6/uL (4.3-5.7); RED CELL DISTRIBUTION WIDTH 12.8 % (11.7-14.4)
[2021-02-16 07:10] LABS: CALCIUM 8.5 mg/dL (8.4-10.2); CREATININE, SERUM 1.01 mg/dL (0.72-1.25)
[2021-02-16] MEDS: DOCUSATE SODIUM 100 MG CAP PO SCH ×2 (07:56→17:00)
[2021-02-16] MEDS: MAGNESIUM HYDROXIDE 30 ML UDC PO PRN (07:57)
[2021-02-16] MEDS: PANTOPRAZOLE SOD 40 MG TABEC PO SCH (07:57)
[2021-02-16] MEDS: POLYETHYLENE GLYCOL 3350 17 GM PACK PO SCH (07:57)
[2021-02-16] MEDS ORDERED: BISACODYL 10 MG SUPP PR ONE (08:45)
[2021-02-16] MEDS ORDERED: SODIUM CHLORIDE 0.9% 250ML 250 ML ONE (20:46)
[2021-02-16] MEDS: LOSARTAN POTASSIUM 100 MG TAB PO SCH (20:47)
[2021-02-16] MEDS: ATORVASTATIN 10 MG TAB PO SCH (20:47)
[2021-02-16] MEDS: MORPHINE SULFATE INJ 4 MG/ML INJ 1ML IV PRN (20:53)
[2021-02-17 00:33] VITALS: BP 98/52
[2021-02-17] MEDS: PIPERACILLIN/TAZOBACTAM 2.25 GM in SODIUM CHLORIDE 0.9% 50ML 50 ML IV SCH (04:14)
[2021-02-17 05:08] VITALS: BP 124/83
[2021-02-17 06:10] LABS: BASOPHILS % 0.4 % (0.0-1.0); EOSINOPHILS # (AUTO) 0.4 (0.0-0.4); EOSINOPHILS % 8.8 % (0.0-6.0); HEMATOCRIT 35.6 % (38.2-49.6); HEMOGLOBIN 11.4 g/dL (14.0-18.0); LYMPHOCYTES % 20.6 % (18.0-39.1); MEAN CORPUSCULAR HEMOGLOBIN 29.8 pg (28-32); MONOCYTES # (AUTO) 0.6 (0.2-0.8); MONOCYTES % 12.2 % (4.4-11.3); NEUTROPHILS # (AUTO) 2.9 (2.1-6.9); NEUTROPHILS % 57.8 % (38.7-80.0); PLATELET COUNT 137 x10e3/uL (140-360); RED BLOOD COUNT 3.83 x10e6/uL (4.3-5.7); RED CELL DISTRIBUTION WIDTH 12.5 % (11.7-14.4)
[2021-02-17 06:41] LABS: CALCIUM 8.8 mg/dL (8.4-10.2); CREATININE, SERUM 1.04 mg/dL (0.72-1.25)
[2021-02-17 07:48] VITALS: BP 124/83
[2021-02-17 08:10] VITALS: BP 133/74
[2021-02-17] MEDS: POLYETHYLENE GLYCOL 3350 17 GM PACK PO SCH (08:55)
[2021-02-17] MEDS ORDERED: KETOROLAC TROME10 MG PO (08:58)
[2021-02-17] MEDS ORDERED: AUGMENTIN 875-1 EACH PO (08:59)
[2021-02-17] MEDS ORDERED: ONDANSETRON ODT4 MG PO (09:00)
[2021-02-17] MEDS: PANTOPRAZOLE SOD 40 MG TABEC PO SCH (09:07)
[2021-02-17] MEDS: DOCUSATE SODIUM 100 MG CAP PO SCH (09:07)
[2021-02-17] MEDS ORDERED: ONDANSETRON HCL 4 MG ORAL DISINTEGRATING TAB PO PRN (10:00)
== END 2021-02-17 10:25 | disposition home or self-care (01) | DRG 674 ==
LOC: OR 11:34 → PACU V 15:58 → MED/SURG 20:06
PROVIDERS: ADMIT Internal Medicine; ATTEND Internal Medicine
PROC: 0VUS0JZ Supplement Penis with Synthetic Substitute, Open Approach (ICD-10-PCS; 2021-02-14)
PROC: 0VPS0JZ Removal of Synthetic Substitute from Penis, Open Approach (ICD-10-PCS; principal; 2021-02-14 13:12)
DX: T83.490A Other mechanical complication of implanted penile prosthesis, initial encounter (principal); N13.8 Other obstructive and reflux uropathy; N40.1 Benign prostatic hyperplasia with lower urinary tract symptoms; N52.9 Male erectile dysfunction, unspecified; I10 Essential (primary) hypertension; Z20.822 Contact with and (suspected) exposure to COVID-19
CPT/HCPCS: 36415; 71046; 80048; 83735; 85025; 88300; 93005; C1776; C1813; J0461; J1100; J1580; J2001; J2270; J2405; J2543; J3010; J3370; J7040; J7050; U0002

== ENCOUNTER 2021-08-12 11:08 | Emergency (ER) | payer MEDICARE ==
[~2021-08-12] VITALS: Ht 167.6 cm; Wt 70.3 kg
[~2021-08-12 11:08] MED LIST changes: +AUGMENTIN 875-1 EACH PO; +KETOROLAC TROME10 MG PO; +ONDANSETRON ODT4 MG PO
[2021-08-12] MEDS ORDERED: SODIUM CHLORIDE 0.9% 1000ML 1,000 ML IV STA (11:30)
[2021-08-12] MEDS ORDERED: KETOROLAC TROMETHAMINE 30 MG/ML VIAL IV STA (11:30)
[2021-08-12] MEDS ORDERED: ONDANSETRON HCL INJ 2MG/ML 2ML 2 MG/ML VIAL IV STA (11:30)
[2021-08-12 11:59] LABS: BASOPHILS % 0.2 % (0.0-1.0); EOSINOPHILS % 0.4 % (0.0-6.0); HEMATOCRIT 46.1 % (38.2-49.6); HEMOGLOBIN 15.1 g/dL (14.0-18.0); LYMPHOCYTES % 19.2 % (18.0-39.1); MEAN CORPUSCULAR HEMOGLOBIN 29.7 pg (28-32); MEAN CORPUSCULAR HGB CONC 32.8 g/dL (31-35); MEAN CORPUSCULAR VOLUME 90.6 fL (81-99); MONOCYTES # (AUTO) 0.4 (0.2-0.8); NEUTROPHILS # (AUTO) 3.7 (2.1-6.9); PLATELET COUNT 226 x10e3/uL (140-360); RED BLOOD COUNT 5.09 x10e6/uL (4.3-5.7); RED CELL DISTRIBUTION WIDTH 12.9 % (11.7-14.4)
[2021-08-12 12:08] LABS: CLARITY,URINE CLEAR (CLEAR); COLOR,URINE YELLOW (YELLOW); KETONES,URINE NEGATIVE (NEGATIVE); LEUKOCYTE ESTERASE ,URINE NEGATIVE (NEGATIVE); NITRITE,URINE NEGATIVE (NEGATIVE); PROTEIN,URINE DIPSTICK NEGATIVE (NEGATIVE); URINE UROBILINOGEN 0.2 mg/dL (0.2 - 1)
[2021-08-12 12:16] LABS: MUCUS,URINE FEW (RARE); RBC,URINE 0-5 /HPF (0-5); WBC,URINE (MAN) 0-5 /HPF (0-5)
[2021-08-12 12:24] LABS: ALBUMIN 4.4 g/dL (3.5-5.0); ALBUMIN/GLOBULIN RATIO 1.4 (0.8-2.0); ANION GAP 12.6 mmol/L (8-16); CALCIUM 10.2 mg/dL (8.4-10.2); CREATININE, SERUM 1.39 mg/dL (0.72-1.25); POTASSIUM 4.6 mmol/L (3.5-5.1)
[2021-08-12] MEDS ORDERED: IOPAMIDOL 370 MG/ML 200 ML INFUS..BTL INJ ONE (12:51)
[2021-08-12] MEDS ORDERED: SODIUM CHLORIDE 0.9% 50ML 50 ML ONE (12:52)
[2021-08-12 15:01] VITALS: BP 133/61
== END 2021-08-12 15:02 | disposition home or self-care (01) ==
LOC: ER 11:17
DX: R10.30 Lower abdominal pain, unspecified (principal); R30.0 Dysuria; I10 Essential (primary) hypertension; F32.A Depression, unspecified
CPT/HCPCS: 36415; 74177; 80053; 81001; 85025; 87086; 99284; J1885; J2405; J7030; Q9967

== ENCOUNTER 2021-08-15 10:44 | Observation (INO) | payer MEDICARE ==
[2021-08-12 10:34] LABS: BASOPHILS % 0.2 % (0.0-1.0); EOSINOPHILS % 0.6 % (0.0-6.0); HEMATOCRIT 44.2 % (38.2-49.6); HEMOGLOBIN 14.6 g/dL (14.0-18.0); LYMPHOCYTES # (AUTO) 0.8 (1.0-3.2); LYMPHOCYTES % 17.9 % (18.0-39.1); MEAN CORPUSCULAR VOLUME 90.8 fL (81-99); MONOCYTES # (AUTO) 0.4 (0.2-0.8); MONOCYTES % 7.4 % (4.4-11.3); NEUTROPHILS # (AUTO) 3.5 (2.1-6.9); NEUTROPHILS % 73.7 % (38.7-80.0); PLATELET COUNT 213 x10e3/uL (140-360); RED BLOOD COUNT 4.87 x10e6/uL (4.3-5.7); RED CELL DISTRIBUTION WIDTH 12.8 % (11.7-14.4)
[2021-08-12 11:06] LABS: ANION GAP 9.5 mmol/L (8-16); CALCIUM 9.5 mg/dL (8.4-10.2); CREATININE, SERUM 1.32 mg/dL (0.72-1.25); POTASSIUM 4.5 mmol/L (3.5-5.1)
[~2021-08-15] VITALS: Ht 167.6 cm; Wt 65.3 kg
[2021-08-15] MEDS ORDERED: SODIUM CHLORIDE 0.9% 50ML 50 ML ONE (11:25)
[2021-08-15] MEDS ORDERED: GENTAMICIN 80MG/NS 100 ML 200 ML IV ONE (11:25)
[2021-08-15] MEDS ORDERED: Clindamycin INJ 300 MG/50 ML 50 ML IV ONE (11:25)
[2021-08-15] MEDS ORDERED: PIPERACILLIN/TAZOBACTAM 3.375 GM VIAL ONE (11:25)
[2021-08-15] MEDS ORDERED: Vancomycin IV 0 MG ONE (12:13)
[2021-08-15] MEDS ORDERED: PROPOFOL IV EMULSION 10 MG/ML 20 ML VIAL ONE (12:42)
[2021-08-15] MEDS ORDERED: ONDANSETRON HCL INJ 2MG/ML 2ML 2 MG/ML VIAL ONE (12:42)
[2021-08-15] MEDS ORDERED: DEXAMETHASONE SOD PHOS INJ 4 MG/ML SDV ONE (12:42)
[2021-08-15] MEDS ORDERED: POVIDONE IODINE 0.05% 0.05 % ML PO ONE (12:42)
[2021-08-15] MEDS ORDERED: SEVOFLURANE INHAL SOLN 250 ML PEN BTL ONE (12:42)
[2021-08-15] MEDS ORDERED: LIDOCAINE HCL 2% LOCAL INJ 5 ML SDV VIAL INJ ONE (12:42)
[2021-08-15] MEDS ORDERED: Vancomycin IV 1 GM VIAL ONE (12:50)
[2021-08-15] MEDS ORDERED: GENTAMICIN SULFATE 40 MG/ML 2 ML VIAL ONE (12:50)
[2021-08-15] MEDS ORDERED: SODIUM CHLORIDE 0.9% 500ML 500 ML ONE (12:51)
[2021-08-15] MEDS ORDERED: FENTANYL CITRATE/PF 100MCG/2 ML INJ ONE ×2 (12:56→15:00)
[2021-08-15] MEDS ORDERED: MORPHINE SULFATE 1 MG/ML 30ML PCA IV PRN (14:30)
[2021-08-15] MEDS ORDERED: DIPHENHYDRAMINE HCL 25 MG CAP PO PRN (14:30)
[2021-08-15] MEDS ORDERED: ACETAMINOPHEN/CODEINE 300MG - 30MG TAB PO PRN (14:30)
[2021-08-15] MEDS ORDERED: PHENAZOPYRIDINE HCL 100 MG TAB PO PRN (14:30)
[2021-08-15] MEDS ORDERED: NALOXONE HCL INJ 0.4 MG/ML AMP IV PRN (14:30)
[2021-08-15] MEDS ORDERED: MUPIROCIN 2% OINT 22 GM TUBE ONE (14:32)
[2021-08-15] MEDS ORDERED: METOCLOPRAMIDE HCL 10 MG/2ML VIAL ONE (15:25)
[2021-08-15] MEDS: SODIUM CHLORIDE 0.9% 1000ML 1,000 ML IV SCH (16:34)
[2021-08-15 16:49] VITALS: BP 138/72
[2021-08-15] MEDS: DOCUSATE SODIUM 100 MG CAP PO SCH (17:01)
[2021-08-15] MEDS: PIPERACILLIN/TAZOBACTAM 2.25 GM in SODIUM CHLORIDE 0.9% 50ML 50 ML IV SCH ×2 (17:01→23:30)
[2021-08-15 17:19] VITALS: BP 138/72
[2021-08-15] MEDS: ONDANSETRON HCL INJ 2MG/ML 2ML 2 MG/ML VIAL IV PRN (18:23)
[2021-08-15] MEDS: Clindamycin INJ 300 MG/50 ML 50 ML IV SCH (18:23)
[2021-08-15 19:32] VITALS: BP 120/66
[2021-08-15 20:00] VITALS: BP 120/66
[2021-08-16] VITALS: BP 123/67
[2021-08-16] MEDS: Clindamycin INJ 300 MG/50 ML 50 ML IV SCH ×2 (03:10→08:44)
[2021-08-16] MEDS: SODIUM CHLORIDE 0.9% 1000ML 1,000 ML IV SCH (03:10)
[2021-08-16 04:00] VITALS: BP 112/78
[2021-08-16 05:43] LABS: BASOPHILS % 0.3 % (0.0-1.0); EOSINOPHILS % 0.7 % (0.0-6.0); HEMATOCRIT 39.1 % (38.2-49.6); HEMOGLOBIN 12.9 g/dL (14.0-18.0); LYMPHOCYTES # (AUTO) 0.8 (1.0-3.2); LYMPHOCYTES % 12.8 % (18.0-39.1); MEAN CORPUSCULAR VOLUME 90.9 fL (81-99); MONOCYTES # (AUTO) 0.6 (0.2-0.8); MONOCYTES % 9.6 % (4.4-11.3); NEUTROPHILS # (AUTO) 4.5 (2.1-6.9); NEUTROPHILS % 76.3 % (38.7-80.0); PLATELET COUNT 146 x10e3/uL (140-360); RED CELL DISTRIBUTION WIDTH 12.7 % (11.7-14.4)
[2021-08-16 06:06] LABS: ANION GAP 11.2 mmol/L (8-16); CALCIUM 8.8 mg/dL (8.4-10.2); CREATININE, SERUM 0.92 mg/dL (0.72-1.25); POTASSIUM 4.2 mmol/L (3.5-5.1)
[2021-08-16] MEDS: PIPERACILLIN/TAZOBACTAM 2.25 GM in SODIUM CHLORIDE 0.9% 50ML 50 ML IV SCH ×2 (06:10→12:00)
[2021-08-16] MEDS: ONDANSETRON HCL INJ 2MG/ML 2ML 2 MG/ML VIAL IV PRN (07:52)
[2021-08-16 08:00] VITALS: BP 134/71
[2021-08-16] MEDS: DOCUSATE SODIUM 100 MG CAP PO SCH (08:44)
[2021-08-16 09:00] VITALS: BP 134/71
[2021-08-16] MEDS ORDERED: METOCLOPRAMIDE HCL 10 MG/2ML VIAL IV ONE (11:45)
[2021-08-16 12:14] VITALS: BP 132/64
[2021-08-16] MEDS ORDERED: ONDANSETRON HCL 4 MG ORAL DISINTEGRATING TAB PO PRN (12:45)
== END 2021-08-16 15:55 | disposition home or self-care (01) ==
LOC: OR 10:44 → PACU V 14:27 → MED/SURG 15:40
PROVIDERS: ADMIT Internal Medicine; ATTEND Internal Medicine
DX: T83.490A Other mechanical complication of implanted penile prosthesis, initial encounter (principal); N28.1 Cyst of kidney, acquired; I10 Essential (primary) hypertension; N40.0 Benign prostatic hyperplasia without lower urinary tract symptoms; Z20.822 Contact with and (suspected) exposure to COVID-19; N52.9 Male erectile dysfunction, unspecified; N40.1 Benign prostatic hyperplasia with lower urinary tract symptoms; N39.0 Urinary tract infection, site not specified; N31.9 Neuromuscular dysfunction of bladder, unspecified; Z01.818 Encounter for other preprocedural examination; Y73.2 Prosthetic and other implants, materials and accessory gastroenterology and urology devices associated with adverse incidents
CPT/HCPCS: 36415 ×2; 52000; 54408; 80048 ×2; 85025 ×2; 88300; 93005; 94799; G0378 ×2; J1100; J1580 ×2; J2001; J2270; J2405 ×2; J2543 ×3; J2704; J2765 ×2; J3010; J3370; J7030 ×2; J7040; Q0162; U0002

== ENCOUNTER 2021-12-29 13:40 | Emergency (ER) | payer MEDICARE ==
[~2021-12-29] VITALS: Ht 167.6 cm; Wt 65.3 kg
[2021-12-29] MEDS ORDERED: SODIUM CHLORIDE 0.9% 1000ML 1,000 ML IV STA (14:55)
[2021-12-29 15:12] LABS: BASOPHILS % 0.1 % (0.0-1.0); EOSINOPHILS # (AUTO) 0.1 (0.0-0.4); EOSINOPHILS % 0.7 % (0.0-6.0); HEMATOCRIT 42.9 % (38.2-49.6); HEMOGLOBIN 13.8 g/dL (14.0-18.0); LYMPHOCYTES # (AUTO) 0.9 (1.0-3.2); LYMPHOCYTES % 12.5 % (18.0-39.1); MEAN CORPUSCULAR HEMOGLOBIN 29.2 pg (28-32); MEAN CORPUSCULAR HGB CONC 32.2 g/dL (31-35); MEAN CORPUSCULAR VOLUME 90.9 fL (81-99); MONOCYTES # (AUTO) 0.7 (0.2-0.8); MONOCYTES % 9.5 % (4.4-11.3); NEUTROPHILS # (AUTO) 5.8 (2.1-6.9); NEUTROPHILS % 76.9 % (38.7-80.0); PLATELET COUNT 173 x10e3/uL (140-360); RED BLOOD COUNT 4.72 x10e6/uL (4.3-5.7); RED CELL DISTRIBUTION WIDTH 12.7 % (11.7-14.4)
[2021-12-29 15:14] LABS: CLARITY,URINE CLEAR (CLEAR); COLOR,URINE YELLOW (YELLOW); KETONES,URINE NEGATIVE (NEGATIVE); LEUKOCYTE ESTERASE ,URINE NEGATIVE (NEGATIVE); NITRITE,URINE NEGATIVE (NEGATIVE); PROTEIN,URINE DIPSTICK NEGATIVE (NEGATIVE); URINE UROBILINOGEN 0.2 mg/dL (0.2 - 1)
[2021-12-29 15:17] LABS: INR 0.92; PARTIAL THROMBOPLASTIN TIME 31.6 seconds (23.8-35.5); PROTHROMBIN TIME 13.2 seconds (11.9-14.5)
[2021-12-29 15:24] LABS: EPITHELIAL CELLS,URINE FEW /LPF; WBC,URINE (MAN) 0-5 /HPF (0-5)
[2021-12-29 15:25] LABS: ALANINE AMINOTRANSFERASE 17 IU/L (0-55); ALBUMIN 3.7 g/dL (3.5-5.0); ALBUMIN/GLOBULIN RATIO 1.1 (0.8-2.0); ALKALINE PHOSPHATASE 84 IU/L (40-150); ANION GAP 12.1 mmol/L (8-16); BLOOD UREA NITROGEN 20 mg/dL (7-26); BUN/CREATININE RATIO 19 (6-25); CALCIUM 8.7 mg/dL (8.4-10.2); CARBON DIOXIDE 26 mmol/L (22-29); CHLORIDE 104 mmol/L (98-107); CREATINE KINASE 38 IU/L (30-200); CREATININE, SERUM 1.03 mg/dL (0.72-1.25); GLUCOSE 108 mg/dL (74-118); LIPASE 18 U/L (8-78); POTASSIUM 4.1 mmol/L (3.5-5.1); SODIUM 138 mmol/L (136-145)
[2021-12-29] MEDS ORDERED: AMOXICILLIN/CLAVULANATE K 875 MG TAB PO STA (17:04)
[2021-12-29] MEDS ORDERED: HYDROCODONE/APAP 5MG-325MG TAB PO ONE ×2 (18:45→19:00)
[2021-12-29] MEDS ORDERED: HYDROCODONE/APAP 5MG-325MG TAB ONE (18:57)
[2021-12-29] MEDS ORDERED: ACETAMINOPHEN-1 EAC4 PO (19:52)
[2021-12-29] MEDS ORDERED: IOPAMIDOL 370 MG/ML 100 ML INFUS..BTL INJ ONE (20:13)
== END 2021-12-29 17:45 | disposition home or self-care (01) ==
LOC: ER 14:06
DX: R10.32 Left lower quadrant pain (principal); K57.32 Diverticulitis of large intestine without perforation or abscess without bleeding; K64.4 Residual hemorrhoidal skin tags; I10 Essential (primary) hypertension; F32.A Depression, unspecified
CPT/HCPCS: 36415; 74177; 80053; 81001; 82550; 82553; 83690; 84484; 85025; 85610; 85730; 99284; J7030; Q9967

== ENCOUNTER 2025-02-23 11:17 | Inpatient (IN) | payer MEDICARE ==
[2025-02-20 09:57] LABS: BASOPHILS % 0.4 % (0.0-1.0); EOSINOPHILS % 2.9 % (0.0-6.0); LYMPHOCYTES % 17.2 % (18.0-39.1); MONOCYTES % 12.3 % (4.4-11.3); NEUTROPHILS % 67.0 % (38.7-80.0); RED CELL DISTRIBUTION WIDTH 13.5 % (11.7-14.4)
[2025-02-20 10:28] LABS: EST GLOMERULAR FILTRATION RATE 88.0 ML/MIN (>=60)
[2025-02-23] VITALS (13 sets, daily range): BP systolic 93–163; BP diastolic 61–81; PULSE 89–108; RESP 15–29; TEMP 97.5–99; O2SAT 92–100
[~2025-02-23] VITALS: Ht 167.6 cm; Wt 63.5 kg
[~2025-02-23 11:17] MED LIST changes: +ACETAMINOPHEN-1 EAC4 PO; +CRESTOR40 MG PO; +FLOMAX0.4 MG PO; +FUROSEMIDE40 MG PO; +MOVANTIK12.5 MG PO
[2025-02-23] MEDS ORDERED: FENTANYL CITRATE/PF 100MCG/2 ML INJ ONE ×2 (12:26→15:05)
[2025-02-23] MEDS ORDERED: LIDOCAINE HCL 2% LOCAL INJ 5 ML SDV VIAL INJ ONE (12:26)
[2025-02-23] MEDS ORDERED: ROCURONIUM BROMIDE 1 ML IV ONE ×2 (12:26→14:55)
[2025-02-23] MEDS ORDERED: PROPOFOL IV EMULSION 10 MG/ML 20 ML VIAL ONE (12:27)
[2025-02-23] MEDS ORDERED: ACETAMINOPHEN 1000 MG/100 ML 100 ML IV ONE (12:27)
[2025-02-23] MEDS ORDERED: SEVOFLURANE INHAL SOLN 250 ML PEN BTL ONE (12:27)
[2025-02-23] MEDS: SODIUM CHLORIDE 0.9% 1000ML 1,000 ML ONE ×3 (13:17→20:33)
[2025-02-23] MEDS: SCOPOLAMINE 1 MG PATCH ONE (13:17)
[2025-02-23] MEDS ORDERED: METOCLOPRAMIDE HCL 10 MG/2ML VIAL ONE (14:35)
[2025-02-23] MEDS ORDERED: DEXAMETHASONE SOD PHOS INJ 4 MG/ML SDV ONE (14:35)
[2025-02-23] MEDS ORDERED: ONDANSETRON HCL INJ 2MG/ML 2ML 2 MG/ML VIAL ONE (15:00)
[2025-02-23] MEDS ORDERED: VASOPRESSIN INJ 20 UNIT/ML VIAL ONE (15:27)
[2025-02-23] MEDS ORDERED: ALBUTEROL 90 MCG/ACT INHALER INH ONE (15:34)
[2025-02-23] MEDS ORDERED: EPINEPHRINE HCL 1:1000 1ML 1 MG/ML AMP ONE (15:48)
[2025-02-23] MEDS ORDERED: DIPHENHYDRAMINE HCL INJ 50 MG/ML VIAL ONE (15:54)
[2025-02-23] MEDS ORDERED: PHENAZOPYRIDINE HCL 100 MG TAB PO PRN (16:15)
[2025-02-23] MEDS ORDERED: ONDANSETRON HCL INJ 2MG/ML 2ML 2 MG/ML VIAL IV PRN (16:15)
[2025-02-23] MEDS ORDERED: DIPHENHYDRAMINE HCL INJ 50 MG/ML VIAL IM PRN (16:15)
[2025-02-23] MEDS ORDERED: ACETAMINOPHEN 1000 MG/100 ML IV PRN (16:15)
[2025-02-23] MEDS: PROPOFOL IV EMULSION 10MG/ML 100 ML IV PRN (16:59)
[2025-02-23] MEDS: SODIUM CHLORIDE 0.9% 1000ML 1,000 ML IV SCH (17:20)
[2025-02-23] MEDS: LEVOFLOXACIN 500MG/D5W 100ML 100 ML IV SCH (17:20)
[2025-02-23] MEDS: DIPHENHYDRAMINE HCL INJ 50 MG/ML VIAL IV SCH (17:21)
[2025-02-23] MEDS: ALBUTEROL/IPRATROPIUM 3 ML NEB NEB SCH (17:30)
[2025-02-23 17:56] LABS: ABG BASE EXCESS -17.0 mmol/L (-2 - 3); ABG HCO3 15 mmol/L (22-26); ABG OXYGEN SATURATION 88.0 % (95-98); ABG PCO2 64 mmHg (35-45); ABG PH 6.98 (7.35-7.45); ABG PO2 85 mmHg (80-105); ABG TCO2 17
[2025-02-23 18:49] LABS: BASOPHILS % 0.1 % (0.0-1.0); EOSINOPHILS % 0.3 % (0.0-6.0); LYMPHOCYTES % 18.9 % (18.0-39.1); MONOCYTES % 1.9 % (4.4-11.3); NEUTROPHILS % 78.3 % (38.7-80.0); RED CELL DISTRIBUTION WIDTH 13.6 % (11.7-14.4)
[2025-02-23] MEDS: SODIUM BICARBONATE 8.4% VIAL 50 ML in SODIUM CHLORIDE 0.45% 1,000 ML IV SCH (18:54)
[2025-02-23] MEDS ORDERED: LORAZEPAM INJ 2 MG/ML VIAL IV ONE (19:00)
[2025-02-23 19:11] LABS: EST GLOMERULAR FILTRATION RATE 95.0 ML/MIN (>=60)
[2025-02-23] MEDS: MIDAZOLAM HCL 2 MG/2 ML VIAL IV STA ×2 (19:26→20:36)
[2025-02-23] MEDS: VASOPRESSIN 60 UNIT in DEXTROSE 5% 50ML 57 ML IV SCH (19:28)
[2025-02-23] MEDS: LORAZEPAM INJ 2 MG/ML VIAL IV ONE (19:31)
[2025-02-23] MEDS: MAGNESIUM SULFATE 2GM/50ML 50 ML IV ONE (19:49)
[2025-02-23] MEDS: METHYLPREDNISOLONE SOD SUCC 40 MG/ML VIAL 1ML IV SCH (19:49)
[2025-02-23] MEDS: FAMOTIDINE 20 MG/2 ML VIAL IV SCH (19:49)
[2025-02-23] MEDS: SODIUM CHLORIDE 0.9% 250ML IRRIG IR SCH (19:50)
[2025-02-23 19:51] LABS: ABG HCO3 13 mmol/L (22-26); ABG PCO2 44 mmHg (35-45); ABG PH 7.09 (7.35-7.45); ABG PO2 76 mmHg (80-105); ABG TCO2 15
[2025-02-23 19:52] LABS: ABG BASE EXCESS -16.0 mmol/L (-2 - 3); ABG OXYGEN SATURATION 89.0 % (95-98)
[2025-02-23] MEDS: MIDAZOLAM HCL 2 MG/2 ML VIAL ONE (20:32)
[2025-02-23] MEDS: CEFTRIAXONE 1 GM VIAL ONE (20:33)
[2025-02-23] MEDS: GENTAMICIN 80MG/NS 100 ML 200 ML IV ONE (20:33)
[2025-02-23] MEDS: Vancomycin IV 1 GM in SODIUM CHLORIDE 0.9% 250ML 250 ML IV ONE (20:37)
[2025-02-23] MEDS ORDERED: METHYLPREDNISOLONE SOD SUCC 40 MG/ML VIAL 1ML IV SCH (21:00)
[2025-02-23] MEDS ORDERED: EPINEPHRINE HCL 1:1000 1ML 4 MG in DEXTROSE 5% 250ML 250 ML IV SCH (21:15)
[2025-02-23 21:47] LABS: ABG PH 7.16 (7.35-7.45)
[2025-02-23 21:48] LABS: ABG BASE EXCESS -15.0 mmol/L (-2 - 3); ABG HCO3 13 mmol/L (22-26); ABG PCO2 38 mmHg (35-45); ABG PO2 153 mmHg (80-105); ABG TCO2 14
[2025-02-23 21:49] LABS: ABG OXYGEN SATURATION 99.0 % (95-98)
[2025-02-23] MEDS: CALCIUM GLUC 1 G/50 ML NACL 50 ML IV ONE (22:12)
[2025-02-23] MEDS: LORAZEPAM INJ 2 MG/ML VIAL IV PRN (22:57)
[2025-02-24] VITALS (80 sets, daily range): BP systolic 69–197; BP diastolic 48–130; PULSE 83–118; RESP 16–27; TEMP 98.2–100.1; O2SAT 95–100
[2025-02-24 01:03] LABS: ABG HCO3 14 mmol/L (22-26); ABG PCO2 32 mmHg (35-45); ABG PH 7.24 (7.35-7.45); ABG PO2 140 mmHg (80-105)
[2025-02-24 01:04] LABS: ABG BASE EXCESS -14.0 mmol/L (-2 - 3); ABG OXYGEN SATURATION 99.0 % (95-98); ABG TCO2 14
[2025-02-24] MEDS ORDERED: SODIUM BICARBONATE 8.4% SYRING 150 ML ONE (04:02)
[2025-02-24 06:09] LABS: BASOPHILS % 0.1 % (0.0-1.0); EOSINOPHILS % 0.0 % (0.0-6.0); LYMPHOCYTES % 3.5 % (18.0-39.1); MONOCYTES % 4.8 % (4.4-11.3); NEUTROPHILS % 91.2 % (38.7-80.0); RED CELL DISTRIBUTION WIDTH 14.1 % (11.7-14.4)
[2025-02-24] MEDS: SODIUM BICARBONATE 8.4% VIAL 150 ML in DEXTROSE 5% 1,000 ML IV SCH (06:28)
[2025-02-24 06:33] LABS: EST GLOMERULAR FILTRATION RATE 91.0 ML/MIN (>=60)
[2025-02-24 07:01] LABS: ABG BASE EXCESS 15.8 mmol/L (-2 - 3); ABG HCO3 16 mmol/L (22-26); ABG PCO2 29 mmHg (35-45); ABG PH 7.35 (7.35-7.45); ABG PO2 177 mmHg (80-105); ABG TCO2 17
[2025-02-24 07:02] LABS: ABG OXYGEN SATURATION 100.0 % (95-98)
[2025-02-24] MEDS ORDERED: PANTOPRAZOLE SOD 40 MG TABEC LEFT EAR SCH (09:00)
[2025-02-24 10:00] LABS: CALCIUM IONIZED 1.1 mmol/L (1.09-1.30)
[2025-02-24 15:08] LABS: ABG BASE EXCESS -6.0 mmol/L (-2 - 3); ABG HCO3 19 mmol/L (22-26); ABG OXYGEN SATURATION 99.0 % (95-98); ABG PCO2 31 mmHg (35-45); ABG PH 7.38 (7.35-7.45); ABG PO2 135 mmHg (80-105); ABG TCO2 20
[2025-02-24 16:48] LABS: ABG BASE EXCESS -5.0 mmol/L (-2 - 3); ABG HCO3 20 mmol/L (22-26); ABG OXYGEN SATURATION 99.0 % (95-98); ABG PCO2 29 mmHg (35-45); ABG PH 7.43 (7.35-7.45); ABG PO2 145 mmHg (80-105); ABG TCO2 20
[2025-02-24] MEDS: FUROSEMIDE INJ 10 MG/ML 2 ML VIAL IV ONE (17:14)
[2025-02-24] MEDS: LORAZEPAM INJ 2 MG/ML VIAL IV ONE (21:40)
[2025-02-25] VITALS (81 sets, daily range): BP systolic 61–200; BP diastolic 52–157; PULSE 59–122; RESP 12–25; TEMP 97.7–98.6; O2SAT 93–100
[2025-02-25 06:21] LABS: BASOPHILS % 0.1 % (0.0-1.0); EOSINOPHILS % 0.5 % (0.0-6.0); LYMPHOCYTES % 7.4 % (18.0-39.1); MONOCYTES % 8.5 % (4.4-11.3); NEUTROPHILS % 82.9 % (38.7-80.0); RED CELL DISTRIBUTION WIDTH 14.0 % (11.7-14.4)
[2025-02-25 07:22] LABS: EST GLOMERULAR FILTRATION RATE 90.0 ML/MIN (>=60)
[2025-02-25] MEDS: DEXMEDETOMIDINE 400MCG/NS100ML 100 ML IV PRN (07:58)
[2025-02-25] MEDS ORDERED: ALBUTEROL/IPRATROPIUM 3 ML NEB NEB PRN (08:00)
[2025-02-25] MEDS: FUROSEMIDE INJ 10 MG/ML 4 ML VIAL IV ONE (08:28)
[2025-02-25 09:12] LABS: ABG BASE EXCESS 2.0 mmol/L (-2 - 3); ABG HCO3 26 mmol/L (22-26); ABG OXYGEN SATURATION 97.0 % (95-98); ABG PCO2 39 mmHg (35-45); ABG PH 7.44 (7.35-7.45); ABG PO2 86 mmHg (80-105); ABG TCO2 28
[2025-02-25 09:14] LABS: ABG BASE EXCESS 1.0 mmol/L (-2 - 3); ABG HCO3 25 mmol/L (22-26); ABG OXYGEN SATURATION 99.0 % (95-98); ABG PCO2 36 mmHg (35-45); ABG PH 7.45 (7.35-7.45); ABG PO2 131 mmHg (80-105); ABG TCO2 26
[2025-02-25 14:56] LABS: ABG BASE EXCESS 5.0 mmol/L (-2 - 3); ABG HCO3 28 mmol/L (22-26); ABG OXYGEN SATURATION 99.0 % (95-98); ABG PCO2 34 mmHg (35-45); ABG PH 7.52 (7.35-7.45); ABG PO2 125 mmHg (80-105); ABG TCO2 29
[2025-02-26] VITALS (44 sets, daily range): BP systolic 68–177; BP diastolic 54–164; PULSE 46–112; RESP 15–23; TEMP 97.5–99; O2SAT 92–100
[2025-02-26 06:37] LABS: BASOPHILS % 0.4 % (0.0-1.0); EOSINOPHILS % 5.2 % (0.0-6.0); LYMPHOCYTES % 7.9 % (18.0-39.1); MONOCYTES % 7.1 % (4.4-11.3); NEUTROPHILS % 79.0 % (38.7-80.0); RED CELL DISTRIBUTION WIDTH 13.2 % (11.7-14.4)
[2025-02-26 06:48] LABS: EST GLOMERULAR FILTRATION RATE 95.0 ML/MIN (>=60)
[2025-02-26] MEDS: HYDROCODONE/APAP 10MG-325MG TAB PO PRN (09:08)
[2025-02-27] VITALS (10 sets, daily range): BP systolic 99–151; BP diastolic 66–87; PULSE 8–103; RESP 17–20; TEMP 97.6–98.9; O2SAT 93–100
[2025-02-27 07:10] LABS: BASOPHILS % 0.1 % (0.0-1.0); EOSINOPHILS % 4.8 % (0.0-6.0); LYMPHOCYTES % 7.9 % (18.0-39.1); MONOCYTES % 8.8 % (4.4-11.3); NEUTROPHILS % 78.0 % (38.7-80.0); RED CELL DISTRIBUTION WIDTH 13.3 % (11.7-14.4)
[2025-02-27 07:19] LABS: EST GLOMERULAR FILTRATION RATE 93.0 ML/MIN (>=60)
[2025-02-27] MEDS ORDERED: TEMAZEPAM 15 MG CAP PO PRN (08:15)
[2025-02-27] MEDS ORDERED: [UNRECOGNIZED DRUG - OTHER] (08:21)
[2025-02-27] MEDS: TRAMADOL HCL 50 MG TAB PO PRN (08:58)
[2025-02-27 12:07] LABS: ABG BASE EXCESS 5.0 mmol/L (-2 - 3); ABG HCO3 28 mmol/L (22-26); ABG OXYGEN SATURATION 99.0 % (95-98); ABG PCO2 34 mmHg (35-45); ABG PH 7.52 (7.35-7.45); ABG PO2 125 mmHg (80-105); ABG TCO2 29
[2025-02-27 12:07] LABS: ABG BASE EXCESS 1.0 mmol/L (-2 - 3); ABG HCO3 25 mmol/L (22-26); ABG OXYGEN SATURATION 99.0 % (95-98); ABG PCO2 36 mmHg (35-45); ABG PH 7.45 (7.35-7.45); ABG PO2 131 mmHg (80-105); ABG TCO2 26
[2025-02-27 12:09] LABS: ABG BASE EXCESS -5.0 mmol/L (-2 - 3); ABG HCO3 20 mmol/L (22-26); ABG OXYGEN SATURATION 99.0 % (95-98); ABG PCO2 29 mmHg (35-45); ABG PH 7.43 (7.35-7.45); ABG PO2 145 mmHg (80-105); ABG TCO2 20
[2025-02-27 12:09] LABS: ABG BASE EXCESS 2.0 mmol/L (-2 - 3); ABG HCO3 26 mmol/L (22-26); ABG OXYGEN SATURATION 97.0 % (95-98); ABG PCO2 39 mmHg (35-45); ABG PH 7.44 (7.35-7.45); ABG PO2 86 mmHg (80-105); ABG TCO2 28
[2025-02-27 12:09] LABS: ABG BASE EXCESS -10.0 mmol/L (-2 - 3); ABG HCO3 16 mmol/L (22-26); ABG OXYGEN SATURATION 100.0 % (95-98); ABG PCO2 29 mmHg (35-45); ABG PH 7.35 (7.35-7.45); ABG PO2 177 mmHg (80-105); ABG TCO2 17
[2025-02-27 12:09] LABS: ABG BASE EXCESS -6.0 mmol/L (-2 - 3); ABG HCO3 19 mmol/L (22-26); ABG OXYGEN SATURATION 99.0 % (95-98); ABG PCO2 31 mmHg (35-45); ABG PH 7.38 (7.35-7.45); ABG PO2 135 mmHg (80-105); ABG TCO2 20
[2025-02-27 12:10] LABS: ABG BASE EXCESS -14.0 mmol/L (-2 - 3); ABG HCO3 14 mmol/L (22-26); ABG OXYGEN SATURATION 99.0 % (95-98); ABG PCO2 32 mmHg (35-45); ABG PH 7.24 (7.35-7.45); ABG PO2 140 mmHg (80-105); ABG TCO2 14
[2025-02-27 12:10] LABS: ABG BASE EXCESS -16.0 mmol/L (-2 - 3); ABG HCO3 13 mmol/L (22-26); ABG OXYGEN SATURATION 89.0 % (95-98); ABG PCO2 44 mmHg (35-45); ABG PH 7.09 (7.35-7.45); ABG PO2 76 mmHg (80-105); ABG TCO2 15
[2025-02-27 12:10] LABS: ABG BASE EXCESS -15.0 mmol/L (-2 - 3); ABG HCO3 13 mmol/L (22-26); ABG OXYGEN SATURATION 99.0 % (95-98); ABG PCO2 38 mmHg (35-45); ABG PH 7.16 (7.35-7.45); ABG PO2 153 mmHg (80-105); ABG TCO2 14
[2025-02-27 12:10] LABS: ABG BASE EXCESS -17.0 mmol/L (-2 - 3); ABG HCO3 15 mmol/L (22-26); ABG OXYGEN SATURATION 88.0 % (95-98); ABG PCO2 64 mmHg (35-45); ABG PH 6.98 (7.35-7.45); ABG PO2 85 mmHg (80-105); ABG TCO2 17
[2025-02-27] MEDS: MIRTAZAPINE 15 MG TAB PO SCH (20:08)
[2025-02-28] VITALS (9 sets, daily range): BP systolic 117–168; BP diastolic 70–99; PULSE 72–96; RESP 0–22; TEMP 97.6–98.4; O2SAT 96–100
[2025-02-28] MEDS: MIRTAZAPINE 15 MG TAB PO SCH (20:17)
[2025-03-01] VITALS: BP 146/82; PULSE 75; RESP 18; TEMP 99.1; O2SAT 99
[2025-03-01 04:00] VITALS: BP 158/94; PULSE 80; RESP 18; TEMP 98.1; O2SAT 98
[2025-03-01 07:01] LABS: BASOPHILS % 0.3 % (0.0-1.0); EOSINOPHILS % 5.0 % (0.0-6.0); LYMPHOCYTES % 10.2 % (18.0-39.1); MONOCYTES % 11.2 % (4.4-11.3); NEUTROPHILS % 72.7 % (38.7-80.0); RED CELL DISTRIBUTION WIDTH 13.5 % (11.7-14.4)
[2025-03-01 07:11] VITALS: PULSE 87; RESP 21; O2SAT 96
[2025-03-01 07:25] LABS: EST GLOMERULAR FILTRATION RATE 89.0 ML/MIN (>=60); PHOSPHORUS 3.2 MG/DL (2.3-4.7)
[2025-03-01 08:50] VITALS: BP 153/86; PULSE 76; RESP 20; TEMP 98.4; O2SAT 96
[2025-03-01 11:58] VITALS: BP 127/67; PULSE 67; RESP 18; TEMP 97.8; O2SAT 95
== END 2025-03-01 15:00 | disposition home or self-care (01) | DRG 987 ==
LOC: OR 11:17 → PACU V 14:44 → ICU 16:39 → MED/SURG3 02-26 17:31
PROVIDERS: ADMIT Internal Medicine; ATTEND Internal Medicine
PROC: 0T7D8ZZ Dilation of Urethra, Via Natural or Artificial Opening Endoscopic (ICD-10-PCS; 2025-02-23)
PROC: BT141ZZ Fluoroscopy of Kidneys, Ureters and Bladder using Low Osmolar Contrast (ICD-10-PCS; 2025-02-23)
PROC: 02HV33Z Insertion of Infusion Device into Superior Vena Cava, Percutaneous Approach (ICD-10-PCS; 2025-02-23)
PROC: B548ZZA Ultrasonography of Superior Vena Cava, Guidance (ICD-10-PCS; 2025-02-23)
PROC: 4A033R1 Measurement of Arterial Saturation, Peripheral, Percutaneous Approach (ICD-10-PCS; 2025-02-23)
PROC: 4A033R1 Measurement of Arterial Saturation, Peripheral, Percutaneous Approach (ICD-10-PCS; 2025-02-23)
PROC: 4A033R1 Measurement of Arterial Saturation, Peripheral, Percutaneous Approach (ICD-10-PCS; 2025-02-23)
PROC: 4A033R1 Measurement of Arterial Saturation, Peripheral, Percutaneous Approach (ICD-10-PCS; 2025-02-23)
PROC: 4A033R1 Measurement of Arterial Saturation, Peripheral, Percutaneous Approach (ICD-10-PCS; 2025-02-23)
PROC: 4A033R1 Measurement of Arterial Saturation, Peripheral, Percutaneous Approach (ICD-10-PCS; 2025-02-23)
PROC: 3E033XZ Introduction of Vasopressor into Peripheral Vein, Percutaneous Approach (ICD-10-PCS; 2025-02-23)
PROC: 03HY32Z Insertion of Monitoring Device into Upper Artery, Percutaneous Approach (ICD-10-PCS; 2025-02-23)
PROC: 0V508ZZ Destruction of Prostate, Via Natural or Artificial Opening Endoscopic (ICD-10-PCS; principal; 2025-02-23 14:21)
PROC: 4A033R1 Measurement of Arterial Saturation, Peripheral, Percutaneous Approach (ICD-10-PCS; 2025-02-24)
PROC: 4A033R1 Measurement of Arterial Saturation, Peripheral, Percutaneous Approach (ICD-10-PCS; 2025-02-24)
PROC: 4A033R1 Measurement of Arterial Saturation, Peripheral, Percutaneous Approach (ICD-10-PCS; 2025-02-24)
PROC: 4A033R1 Measurement of Arterial Saturation, Peripheral, Percutaneous Approach (ICD-10-PCS; 2025-02-24)
PROC: 4A033R1 Measurement of Arterial Saturation, Peripheral, Percutaneous Approach (ICD-10-PCS; 2025-02-24)
PROC: 4A033R1 Measurement of Arterial Saturation, Peripheral, Percutaneous Approach (ICD-10-PCS; 2025-02-24)
PROC: 4A033R1 Measurement of Arterial Saturation, Peripheral, Percutaneous Approach (ICD-10-PCS; 2025-02-24)
PROC: 4A033R1 Measurement of Arterial Saturation, Peripheral, Percutaneous Approach (ICD-10-PCS; 2025-02-25)
PROC: 4A033R1 Measurement of Arterial Saturation, Peripheral, Percutaneous Approach (ICD-10-PCS; 2025-02-25)
PROC: 4A033R1 Measurement of Arterial Saturation, Peripheral, Percutaneous Approach (ICD-10-PCS; 2025-02-25)
PROC: 4A033R1 Measurement of Arterial Saturation, Peripheral, Percutaneous Approach (ICD-10-PCS; 2025-02-25)
PROC: 4A033R1 Measurement of Arterial Saturation, Peripheral, Percutaneous Approach (ICD-10-PCS; 2025-02-25)
PROC: 4A033R1 Measurement of Arterial Saturation, Peripheral, Percutaneous Approach (ICD-10-PCS; 2025-02-25)
DX: T88.6XXA Anaphylactic reaction due to adverse effect of correct drug or medicament properly administered, initial encounter (principal); J96.01 Acute respiratory failure with hypoxia; J96.02 Acute respiratory failure with hypercapnia; N13.8 Other obstructive and reflux uropathy; N39.0 Urinary tract infection, site not specified; E87.20 Acidosis, unspecified; J81.1 Chronic pulmonary edema; J44.1 Chronic obstructive pulmonary disease with (acute) exacerbation; N40.1 Benign prostatic hyperplasia with lower urinary tract symptoms; T78.3XXA Angioneurotic edema, initial encounter; T50.905A Adverse effect of unspecified drugs, medicaments and biological substances, initial encounter; Q62.5 Duplication of ureter; N35.819 Other urethral stricture, male, unspecified site; Z87.891 Personal history of nicotine dependence; E87.8 Other disorders of electrolyte and fluid balance, not elsewhere classified; D50.9 Iron deficiency anemia, unspecified; I10 Essential (primary) hypertension; Z78.1 Physical restraint status; E78.5 Hyperlipidemia, unspecified; Y83.8 Other surgical procedures as the cause of abnormal reaction of the patient, or of later complication, without mention of misadventure at the time of the procedure; E29.1 Testicular hypofunction; Y92.234 Operating room of hospital as the place of occurrence of the external cause; R07.89 Other chest pain; R10.11 Right upper quadrant pain; Z85.118 Personal history of other malignant neoplasm of bronchus and lung; Z90.2 Acquired absence of lung [part of]
CPT/HCPCS: 36415; 36569; 36600; 71045; 71046; 74420; 76700; 80048; 80053; 82607; 82746; 82805; 82948; 83605; 83735; 84100; 85025; 87040; 87086; 93005; 94002; 94003; 94640; 94799; C1758; J0169; J0696; J1100; J1200; J1308; J1580; J1938; J1956; J2003; J2060; J2250; J2405; J2765; J2919; J3373; J3475; J7030; J7050; J7070